=== PATIENT | female | born 1940 | race Caucasian/White ===

== ENCOUNTER 2021-11-24 08:43 | Observation (INO) ==
--- NOTE | 2021-11-20 11:33 | Anesthesiology Consultation ---
Date of Service November 20, 2021 Assessment & Plan (1) Encounter for pre-operative examination: Chart Review Chart Review: Acceptable Risk for Surgery (pending preop Covid testing results ) and Patient NOT seen in Pre Admission Testing - Check BSG AM DOS Per nursing assessment 11/14/2021, eyes any recent travel. No known Covid infection in the past 90 days. Patient is fully vaccinated for Covid. No known Covid positive exposures or Covid related symptoms. Preop Covid testing scheduled 11/20/21= will await results Patient last seen by PCP 11/17/2021 = pt feeling relatively well today. Scheduled for repair/replacement of right knee prosthesis next Wednesday. Kidney dysfunction has continued with slight declinefollowing with nephrologyseen twice yearly. Following with heme for anemia. Following with endocrinology for diabetes Toujeo recently increased. Hypertensionwe will add amlodipine each evening. Plan for repair/replacement of right knee prosthesis next 11/24/2021. Famotidine dose decreased. (Medication updated in med list- patient given instructions to take amlopidine as scheduled) Pt last seen by cardio 09/13/20= Chronic issue stable. Medically managed CAD. 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 Discussed case with Dr. Cassidy re: cardiac history - patient denies any recent chest pain/pressure- mild/chronic BENITEZ with hills (climbs daily to get mail)- preop EKG unremarkable- patient can proceed as scheduled.) History Surgery Operation Date: 11/24/21 07:15 Proposed Procedures p Right Knee Poly Exchange, Patellar Revision - Ricardo Balderas MD Height/Weight Height: 5 ft 1 in Weight: 68.039 kg Allergies Allergy/AdvReac Type Severity Reaction Status Date / Time Penicillins Allergy Unknown Hives Verified 11/14/21 08:40 naproxen AdvReac Unknown Nausea Verified 11/14/21 08:40 oxycodone [From OxyContin] AdvReac Unknown N/V Verified 11/14/21 08:40 Medications Home Medications Medication Instructions Recorded Confirmed Last Taken allopurinol 100 mg tablet 100 mg PO QPM 01/27/21 11/14/21 Unknown alprazolam 0.25 mg tablet 0.25 - 0.5 mg PO BID PRN 01/27/21 11/14/21 Unknown aspirin 81 mg tablet,delayed 81 mg PO QAM 01/27/21 11/14/21 Unknown release cyanocobalamin (vitamin B-12) 5,000 mcg PO QAM 01/27/21 11/14/21 Unknown 5,000 mcg capsule doxazosin 1 mg tablet 1 mg PO HS 01/27/21 11/14/21 Unknown gabapentin 300 mg capsule 300 mg PO BID 01/27/21 11/14/21 Unknown hydrochlorothiazide 12.5 mg capsule 12.5 mg PO QAM 01/27/21 11/14/21 Unknown insulin aspart U-100 100 unit/mL 8 unit SUBCUT TID 01/27/21 11/14/21 Unknown subcutaneous solution (Novolog U-100 Insulin aspart) levothyroxine 100 mcg capsule 100 mcg PO QAM 01/27/21 11/14/21 Unknown liraglutide 0.6 mg/0.1 mL (18 mg/3 0.6 mg SUBCUT QPM 01/27/21 11/14/21 Unknown mL) subcutaneous pen injector ([employer] 2-Kam) losartan 100 mg tablet 100 mg PO HS 01/27/21 11/14/21 Unknown magnesium 250 mg tablet 500 mg PO QAM 01/27/21 11/14/21 Unknown metoprolol succinate 100 mg 100 mg PO PM 01/27/21 11/14/21 Unknown tablet,extended release 24 hr simvastatin 40 mg tablet 40 mg PO HS 01/27/21 11/14/21 Unknown cholecalciferol (vitamin D3) 125 125 mcg PO QAM 11/14/21 11/14/21 Unknown mcg (5,000 unit) tablet (Vitamin D3) cholecalciferol (vitamin D3) 25 25 mcg PO PM 11/14/21 11/14/21 Unknown mcg (1,000 unit) chewable tablet (Vitamin D3) insulin glargine U-300 conc 300 88 unit SUBCUT PM 11/14/21 11/14/21 Unknown unit/mL (3 mL) subcutaneous pen (Toujeo Max U-300 SoloStar) amlodipine 2.5 mg tablet 2.5 mg PO QPM 11/20/21 11/20/21 Unknown famotidine 20 mg tablet 20 mg PO BID 11/20/21 11/20/21 Unknown Past Medical History Medical History (Updated 11/20/21 @ 11:14 by Isidra Baker PA-C) Anemia Chronic, baseline hgb 10-11 range CAD (coronary artery disease) Chronic total occlusion of distal RCA per 2018 cardiac cath Medically managed Chronic kidney disease Follows with Dr. Vasquez Diabetes mellitus, type 2 IDDM GERD (gastroesophageal reflux disease) Controlled Gout History of claustrophobia Hyperlipidemia Hypertension Hypothyroidism Past Family History Family History Mother Family history of diabetes mellitus Past Surgical History Surgical History History of cardiac cath 2019> no stents History of cholecystectomy History of colonoscopy 2019 History of hysterectomy Total History of total knee replacement R/L History of total shoulder replacement R/L Social History Smoking Status: Never smoker Do You Dip or Chew Tobacco: No Hx Alcohol Use: Yes Alcohol type: beer alcohol intake frequency: holidays/special occasions only Hx Substance Use: No substance use type: does not use Lab Results Anesthesia Preop Results Results Anesthesia Widget: WBC 7.43 K/uL (4.8-10.8) 11/14/21 Hgb 11.2 g/dL (12.0-16.0) L 11/14/21 Hct 32.9 % (37-47) L 11/14/21 Plt 230 K/uL (130-400) 11/14/21 Na 135 mmol/L (136-145) L 11/14/21 K 4.3 mmol/L (3.5-5.1) 11/14/21 Cl 98 mmol/L (98-107) 11/14/21 CO2 29 mmol/L (21-32) 11/14/21 BUN 27 mg/dl (6-23) H 11/14/21 Creat 1.63 mg/dl (0.6-1.2) H 11/14/21 Glucose Level 137 mg/dl (70-99(Fasting)) H 11/14/21 PT 10.9 Seconds (9.0-12.0) 11/18/21 PTT 24.5 Seconds (21.0-31.0) 11/14/21 INR 1.0 (0.9-1.1) 11/18/21 HA1c 8.1 % (4.5-5.6) H 11/14/21 Urine Color Yellow 11/14/21 Urine Appearance Clear (Clear) 11/14/21 Urine pH 7.5 (4.5-7.5) 11/14/21 Urine Specific [place] 1.011 (1.000-1.030) 11/14/21 Urine Protein Negative (Negative) 11/14/21 Urine Glucose (UA) Negative (Negative) 11/14/21 Urine Ketones Negative (Negative) 11/14/21 Urine Blood Negative (Negative) 11/14/21 Urine Nitrite Negative (Negative) 11/14/21 Urine Bilirubin Negative (Negative) 11/14/21 Urine Urobilinogen Negative (Negative) 11/14/21 Urine Leukocyte Esterase 2+ (Negative) H 11/14/21 Urine WBC (Auto) 5-10 /hpf (0-5) H 11/14/21 Urine RBC (Auto) 0-4 /hpf (0-4) 11/14/21 Urine Hyaline Casts (Auto) 1-5 /lpf (0-5) 11/14/21 Urine Epithelial Cells (Auto) >30 /lpf (0-5) H 11/14/21 Urine Bacteria (Auto) 1+ (Negative) H 11/14/21 Lab Comments: *Anemia chronic and stable Elevated creat- chronic and stable- mildly improved from previous Mildly elevated Hgb A1C- endo increased insulin per PCP note from 11/17/21 Testing Laboratory Results 11/14/21= URINE CULTURE: 3 types of organisms present, all high counts probable skin princess Electrocardiogram Date: 11/14/21 Sinus rhythm with first-degree AV block at 74 bpm. Otherwise normal EKG per cardio. Chest X-Ray Date: 02/06/21 FINDINGS: Bilateral shoulder arthroplasties are incidentally noted. Cardiomediastinal silhouette is stable. There is no pneumothorax or pleural effusion. There is no evidence for pulmonary edema. Mild bibasilar opacities favor atelectasis. IMPRESSION: No acute cardiopulmonary findings. Echocardiogram Date: 06/07/18 EF: 55% Normal LV wall motion and ejection fraction. Enlargement of the left atrium. Sclerotic changes involving both the aortic and mitral valve leaflets, as well as mitral annular calcification. Mild mitral and tricuspid valvular insufficiency. Stress Test Date: 06/14/18 Abnormal myocardial perfusion SPECT images with evidence for pharmacologically induced inferolateral ischemia. Normal LV wall motion and thickening. Normal LVEF post stress of 68%. Subsequent cardiac cath 07/2018* Cardiac Catheterization Date: 07/08/18 LM = angiographically normal LAD = mid 20% stenosis. Collaterals are visualized to distal RCA. Circumflex = mild atherosclerosis RCA = distant 100% chronic total occlusion, with faint CAS I flow into the PLV branch. RPDA is only visualized via collaterals from LAD artery. Impression and plan: Chronic total occlusion of distal RCA. Normal LV systolic function. Recommendations: Medical therapy.
--- NOTE | 2021-11-23 09:29 | History & Physical Report ---
Date of Service November 23, 2021 Assessment & Plan (1) Instability of knee joint: Plan: Treatment options discussed with the patient. She has exam findings consistent with a fracture polyethylene post. She is having persistent instability and dysfunction of her knee. Is unable to normal daily activities due to her pain. She would like to proceed with surgical intervention. Risks, benefits and alternatives to surgery including but not limited to infection, DVT, pain, stiffness, need for revision surgery, damage to blood vessels, damage to nerves, PE, , were discussed with the patient and they wish to proceed. We will plan on polyethylene exchange right total knee arthroplasty, patella revision. Surgery scheduled for November 24, [address] Balderas at [facility]. We will plan on aspirin 81 mg p.o. daily for 1 month postop for DVT prophylaxis. We will plan on home health PT postop. All questions answered. She will follow up post op. Laterality: right Qualified Code(s): M25.361 - Other instability, right knee History of Present Illness Chief Complaint: Right knee pain Primary Care Provider: Daniel Kohli 81-year-old female with past medical history significant for NARAYAN, diabetes mellitus type 2, hypothyroidism, hypertension, CAD, CKD who presents with ongoing right knee pain and instability. Pain is interfering with daily activities. Her exam and history are consistent with a fracture polyethylene post. She would like to proceed with surgical intervention. Patient denies headaches, sweats, fevers, chills, double vision, blurred vision, cough, sore throat, dysphagia, chest pain, sob, wheezing, n/v/d/c, numbness, tingling, fatigue, urinary symptoms, mood disorders. ROS positive for right knee pain and instability. Allergies Allergy/AdvReac Type Severity Reaction Status Date / Time Penicillins Allergy Unknown Hives Verified 11/14/21 08:40 naproxen AdvReac Unknown Nausea Verified 11/14/21 08:40 oxycodone [From OxyContin] AdvReac Unknown N/V Verified 11/14/21 08:40 Home Medications Medication Instructions Recorded Confirmed Type allopurinol 100 mg tablet 100 mg PO QPM 01/27/21 11/14/21 History alprazolam 0.25 mg tablet 0.25 - 0.5 mg PO BID PRN 01/27/21 11/14/21 History aspirin 81 mg tablet,delayed 81 mg PO QAM 01/27/21 11/14/21 History release cyanocobalamin (vitamin B-12) 5,000 mcg PO QAM 01/27/21 11/14/21 History 5,000 mcg capsule doxazosin 1 mg tablet 1 mg PO HS 01/27/21 11/14/21 History gabapentin 300 mg capsule 300 mg PO BID 01/27/21 11/14/21 History hydrochlorothiazide 12.5 mg capsule 12.5 mg PO QAM 01/27/21 11/14/21 History insulin aspart U-100 100 unit/mL 8 unit SUBCUT TID 01/27/21 11/14/21 History subcutaneous solution (Novolog U-100 Insulin aspart) levothyroxine 100 mcg capsule 100 mcg PO QAM 01/27/21 11/14/21 History liraglutide 0.6 mg/0.1 mL (18 mg/3 0.6 mg SUBCUT QPM 01/27/21 11/14/21 History mL) subcutaneous pen injector ([employer] 2-Kam) losartan 100 mg tablet 100 mg PO HS 01/27/21 11/14/21 History magnesium 250 mg tablet 500 mg PO QAM 01/27/21 11/14/21 History metoprolol succinate 100 mg 100 mg PO PM 01/27/21 11/14/21 History tablet,extended release 24 hr simvastatin 40 mg tablet 40 mg PO HS 01/27/21 11/14/21 History cholecalciferol (vitamin D3) 125 125 mcg PO QAM 11/14/21 11/14/21 History mcg (5,000 unit) tablet (Vitamin D3) cholecalciferol (vitamin D3) 25 25 mcg PO PM 11/14/21 11/14/21 History mcg (1,000 unit) chewable tablet (Vitamin D3) insulin glargine U-300 conc 300 88 unit SUBCUT PM 11/14/21 11/14/21 History unit/mL (3 mL) subcutaneous pen (Toujeo Max U-300 SoloStar) amlodipine 2.5 mg tablet 2.5 mg PO QPM 11/20/21 11/20/21 History famotidine 20 mg tablet 20 mg PO BID 11/20/21 11/20/21 History Past Med/Surg History Medical History (Updated 11/23/21 @ 09:34 by Son Connors PA-C) Anemia Chronic, baseline hgb 10-11 range CAD (coronary artery disease) Chronic total occlusion of distal RCA per 2018 cardiac cath Medically managed Chronic kidney disease Follows with Dr. Vasquez Diabetes mellitus, type 2 IDDM GERD (gastroesophageal reflux disease) Controlled Gout History of claustrophobia Hyperlipidemia Hypertension Hypothyroidism Surgical History History of cardiac cath 2019> no stents History of cholecystectomy History of colonoscopy 2019 History of hysterectomy Total History of total knee replacement R/L History of total shoulder replacement R/L Family History Mother Family history of diabetes mellitus Social History Smoking Status: Never smoker Second Hand Exposure: No; Hx Alcohol Use: Yes Alcohol type: beer Hx Substance Use: No Preferred Language: Croatian Communication Ability: Effective Pediatric Immunologist Required: No Beliefs That Will Affect Care: None Current Living Situation: Spouse Feels Safe at Home: Yes Assistive Devices: Denture - Upper, Denture - Lower and Glasses Review of Systems All systems reviewed & are unremarkable except as noted in HPI & below Physical Exam Constitutional: well developed and well nourished; no acute distress Eyes: PERRL, conjunctivae normal, anicteric sclerae ENMT: external ear and nose normal, oropharynx normal Neck: trachea midline, no thyromegaly Respiratory: normal respiratory effort, lungs clear to auscultation Cardiovascular: RRR, no murmur, no edema Musculoskeletal: Right knee: There is no erythema. Mild to moderate effusion. She has well-healed surgical incision. Range of motion is 0 to 120 degrees. Positive valgus varus stress test, positive posterior drawer. She has subluxation consistent with a fractured post on posterior drawer. Skin: no rashes, warm and dry Neurologic: patellar DTR's 2+ bilat, sensation intact Psychiatric: A+Ox3, euthymic affect Results & Data ([facility]) Diagnostic Findings Right knee: There is a right total knee arthroplasty and stable alignment. L ucency patella component concerning for possible patellar loosening.
[~2021-11-24 08:43] MED LIST: ACETAMINOPHEN 500 MG TAB PO SCH; BUPIVACAINE 0.25% 30 ML VIAL ONE; BUPIVACAINE 0.5 % 5 MG/1 ML PF 10ML VIAL ONE; CeleBREX 200 MG CAP PO SCH; FAMOTIDINE 20 MG TAB PO SCH; GABAPENTIN 300 MG CAP PO SCH; METOCLOPRAMIDE HCL 10 MG TABLET PO SCH; ROPIVACAINE 0.5% HCL/PF 150 MG, BUPIVACAINE 0.75% MPF 20 ML, EPINEPHrine 30MG/30ML (OR ... INFIL SCH; SODIUM CHLORIDE 0.9% 1000ML IV SCH; TRANEXAMIC ACID 1,000 MG **IV Intra-op IV SCH; TRANEXAMIC ACID 1,000 MG **IV Pre-op IV SCH
[2021-11-24] MEDS: VANCOMYCIN HCL 1,000 MG/270 ML BAG IV SCH ×2 (09:20→11:04)
--- NOTE | 2021-11-24 10:15 | History & Physical Bridge Note ---
Date of Service November 24, 2021 History & Physical Bridge Note I have examined the patient, reviewed the History & Physical and in the interval since the performance of the History & Physical I have noted the following changes of clinical significance: Patient has an abrasion 3-1/2 cm x 3 cm oval superficial left knee with no knee effusion and some mild erythema consistent with irritation of the skin but no clinical cellulitis.
[2021-11-24] MEDS ORDERED: MIDAZOLAM HCL 1 MG/ML 2ML VIAL ONE (10:56)
[2021-11-24] MEDS ORDERED: ONDANSETRON INJ 2 MG/ML 2 ML VIAL IV PRN ×2 (11:39→16:41)
[2021-11-24] MEDS ORDERED: ePHEDrine sulfate 50 MG/ML AMP IV PRN (11:39)
[2021-11-24] MEDS ORDERED: fentaNYL citrate 100 MCG/2 ML VIAL IV PRN (11:39)
[2021-11-24] MEDS ORDERED: ATROPINE SULFATE 0.1 MG/ML 10ML SYR IV PRN (11:39)
[2021-11-24] MEDS ORDERED: ORTHO JOINT ANESTHETIC ONE (13:02)
[2021-11-24] MEDS ORDERED: ONDANSETRON INJ 2 MG/ML 2 ML VIAL ONE (13:38)
[2021-11-24] MEDS ORDERED: PROPOFOL IV EMULSION 10 MG/ML 20 ML VIAL IV ONE (13:38)
[2021-11-24] MEDS ORDERED: LIDOCAINE 2% 2 ML VIAL/AMP(20MG/ML) INFIL ONE (13:38)
--- NOTE | 2021-11-24 15:43 | Post Operative Brief Note ---
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 I identified the patient and participated in the time-out.: Yes Procedure Operation Date: 11/24/21 11:15 Actual Procedures p Right Knee Tibial Poly Exchange, Patellar Revision, with synovectomy(Right) and superficial wound VAC application- Ricardo Balderas MD Surgeon Ricardo Balderas MD Chain Mender Khari HUSSEIN Estimated Blood Loss 5 Findings Consistent with Post-Op Diagnosis Specimens Explanted polyethylene tibial component Swab culture knee joint fluid Drains Hemovac Drain (right knee) Anesthesia Type MAC Spinal Regional Complications none Disposition Disposition: Recovery Room Overlapping Procedure I was immediately available: during the entire case.
--- NOTE | 2021-11-24 16:16 | XRay Report ---
RIGHT KNEE 2 VIEWS History: Right total knee arthroplasty. Degenerative arthritis. Postop. FINDINGS: The patient is status post a right total knee arthroplasty. The hardware is intact. No frac ture or dislocation. Skin schuyler and surgical drains are in place. IMPRESSION: Right total knee arthroplasty. No evidence for hardware complication. ACT 112: Negative or not required by law. Electronically signed by: Maury Marsh M.D. 11/24/2021 4:14 PM
--- NOTE | 2021-11-24 16:35 | Anesthesiology Progress Note ---
Date of Service November 24, 2021 Anesthesia Post Procedure Vital Signs Vital Signs: Temp Pulse Pulse Resp BP BP Pulse Ox 11/24/21 16:25 68 16 115/58 L 94 11/24/21 16:15 36.6 C 70 20 102/66 93 11/24/21 16:05 75 18 102/51 L 93 11/24/21 15:55 73 14 106/54 L 93 11/24/21 15:46 36.7 C 80 12 82/63 L 95 11/24/21 09:52 36.4 C L 75 20 102/86 96 Transfer of Care Handoff Completed per policy Notes Mental Status: alert / awake / arousable Patient Amnestic to Procedure: Yes Nausea / Vomiting: adequately controlled Pain: adequately controlled Airway Patency, RR, SpO2: stable & adequate BP & HR: stable & adequate Hydration State: stable & adequate Anesthetic Complications: no major complications apparent
[2021-11-24] MEDS ORDERED: MAGNESIUM HYDROXIDE SUSP 30 ML UDC PO PRN (16:41)
[2021-11-24] MEDS ORDERED: VANCOMYCIN CONSULT ACTIVE PRN (16:41)
[2021-11-24] MEDS ORDERED: ALPRAZolam 0.25 MG TABLET PO PRN (16:41)
[2021-11-24] MEDS ORDERED: HYDROCODONE/ACETAMOPHEN 5/325MG TAB PO PRN (16:41)
[2021-11-24] MEDS ORDERED: METOCLOPRAMIDE HCL INJ 5 MG/ML 2 ML VIAL IV PRN (16:41)
[2021-11-24] MEDS ORDERED: PHARMACY GLYCEMIC MGMT CONSULT PRN (16:41)
[2021-11-24] MEDS ORDERED: bisacodyL 10 MG SUPP PR PRN (16:41)
[2021-11-24] MEDS ORDERED: NALOXONE HCL 0.4 MG/1 ML VIAL/CARP IV PRN (16:41)
[2021-11-24] MEDS: SODIUM CHLORIDE 0.9% 1000ML 1,000 ML IV SCH (17:20)
--- NOTE | 2021-11-24 18:13 | Operative Report (OR) ---
DATE OF SURGERY: 11/24/2021. 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 PROCEDURE: Right knee polyethylene exchange of tibial component and revision patellar component with curettage of cyst patella and electrocautery synovectomy, right knee and superficial wound VAC appli cation. SURGEON: Ricardo Balderas MD. COMPUTER SYSTEMS SUPPORT SPECIALIST: KEENAN Serrano. ESTIMATED BLOOD LOSS: 5 mL FINDINGS: Consistent with postoperative diagnosis. SPECIMENS: Explanted tibial polyethylene component and fractured tibial polyethylene and swab cultur e knee joint fluid. DRAINS: Hemovac x2. ANESTHESIA: MAC spinal regional block. COMPLICATIONS: None. DISPOSITION: Recovery room. OVERLAPPING PROCEDURE: None. INDICATIONS FOR PROCEDURE: Patient is an 81-year-old female who had a right total knee arthroplasty index procedure in 2009. She had a [employer] Journey I type total knee replacement. She did well over the years until this last year when she developed instability of her knee. Radiographs dem onstrate a well-fixed cemented implants that are satisfactory aligned. On the skyline patellar view, there appears to be some cystic changes below the patellar component concerning for osteolysis. Bon e scan demonstrated this did have some increased signal activity consistent with osteolysis around th e patellar component. Clinically, she has posterior instability of the knee and some varus or valgus instability consistent with a fractured polyethylene post. DESCRIPTION OF PROCEDURE: The patient was taken to the operating room, anesthetized under MAC spinal and regional block anesthetic right lower extremity. Pneumatic tourniquet was placed on right upper thigh. Knee exam demonstrates she had good range of motion and some varus or valgus instability and with posterior drawer, there was subluxation of the component consistent with a fractured polyethyle ne post. There was a moderately large effusion. The right lower extremity was prepped and draped wi ChloraPrep. Leg was elevated, exsanguinated with an Esmarch bandage, and pneumatic tourniquet was raised to 300 mmHg. Anterior incision was made through her old longitudinal scar. Skin was incised sharply. Subcutaneous flaps were elevated. Extensor mechanism was all intact. An incision was made through the medial retinaculum extended up in the mid third of quadriceps tendon and extended down to medial tibial tubercle. When the joint was opened up, there was moderately lar ge effusion, clear benign appearing fluid. We did culture this as a precaution. Inspecting the knee , there was synovitis in the knee. The polyethylene post was chronically fractured. The fragment was in the notch area and the top of the post that had fractured off was rounded off and smoothed out fr om chronic subluxation. There was some superficial polyethylene wear on the joint surface of the dickson yethylene, no backside wear noted. The patella itself was well fixed, not loose, but there was obvio us osteolysis. The synovium was chronically inflamed. Attention was first paid to performing electrocautery synovectomy removing the synovium in the gutter s, suprapatellar pouch, and around the patellar component. Then, the tibial polyethylene was removed using a curved osteotome and sharp Hohmann to lever it out; however, the tibial component and a smal l fragment that had broken off and the notch was removed. Some further synovectomy performed in the notch area posteriorly around the condyles. Patellar components were solid and intact without any lo osening there. There was no significant osteolysis surrounding those components. The patella was ev erted. Subperiosteal peel lateral release was performed around the patella. Patella bone was not lo ose, although it looked like there was some internal changes in the polyethylene, possibly some backs joaquin issues with a polyethylene patella. Due to a positive bone scan and radiographic osteolysis deci clay was made to revise the patella. The patella was removed with oscillating saw, taking minimal tan ne off the patella. The plastic lugs were removed with a drill and a curette. Then, a 32 mm patella r guide from the [employer] system was placed over the holes and the drill holes were d rilled out removing the cement and gaining appropriate depth for revision patellar component. After this was done, it was noted that there was some osteolysis on the patella toward the medial peg. The re was a fairly large cyst that extended centrally was contained within the patella. This was curett ed out. Some superficial small cyst from osteolysis were curetted out. There was a large good amoun t of patellar bone to perform a primary revision of the polyethylene component. Trial was placed and was stable and fully seated. Attention was taken to trialing the tibial polyethylene. We placed a 9 tibial polyethylene for a 4 t ibial component, which was similar to that originally implanted and this restored stability through f ull range of motion and ligamentous balance was satisfactory and the patella tracked centrally. The trials were removed. The knee was copiously irrigated with saline solution. Then, the Journey I siz e 4 x 9 mm posterior stabilized polyethylene component was inserted into the tibia with the insertion device. Then the knee was placed in full extension, and the 32 symmetrical patella was cemented int o position with Simplex cement filling the cyst areas with cement. Clamp was placed and held until h ardened. Betadine soak was used for 3 minutes. Knee was copiously irrigated again. The 2 drains we re brought out laterally. I connected to Hemovac. The quadriceps tendon and medial retinaculum were closed in [id number] #1 Vicryl sutures. Knee was taken through full range of motion, repair wa s secured. Subcutaneous tissue closed with interrupted 2-0 Vicryl sutures and skin was closed with s taples and then a superficial wound VAC was applied, MARILY and Acticoat. The tourniquet was let down. The patient had normal capillary refill of the extremity. The patient tolerated the procedure well . KEENAN Serrano was my supply chain assistant. He functioned as supply chain assistant through the entire proce dure. He assisted in all activities of the procedure through the entire procedure starting with prep ping, draping, soft tissue retraction, instrument management and revision of the components and michael zena in closure and applied a superficial wound VAC. He will participate in postoperative care of the patient as well. Job ID: [id number]
[2021-11-24] MEDS ORDERED: DEXTROSE 50% 50 ML SYRINGE IV PRN (19:00)
[2021-11-24] MEDS ORDERED: GLUCOSE 10 TABS/TUBE PO PRN (19:00)
[2021-11-24] MEDS ORDERED: CARBOHYDRATES FOR HYPOGLYCEMIA PO PRN (19:00)
[2021-11-24] MEDS ORDERED: GLUCAGON FOR INJ 1 MG VIAL IM PRN (19:00)
[2021-11-24] MEDS ORDERED: GLUCOSE 40% GEL 15 GM TUBE PO PRN (19:00)
--- NOTE | 2021-11-24 20:13 | Hospitalist Consultation ---
Date of Consultation November 24, 2021 Assessment & Plan (1) Instability of knee joint: POD #0 from Right Knee Tibial Poly Exchange, Patellar Revision, with synovectomy(Right) and superficial wound VAC application - Pain control per primary Orthopaedics service- Appropriate with rescue Narcan Available - ABX- Per primary Orthopaedics service - VTE- SCDs, chemoproph- per primary Orthopaedics service- planning on ASA per notes - IVF- per primary Orthopaedics service - Wound care- per primary Orthopaedics service - Transfusion needs per primary Orthopaedics service - PT/OT- per primary Orthopaedics service - Drains/Vacs- per primary Orthopaedics service - Restart ASA when hemostasis is ensured per primary Orthopaedics service (2) Hypertension: Currently hypotensive but with MAPS >65- variable BPs reported at home- Amlodopine was recently added as outpatient - trend overnight and morning - Current medications on hold: Amlodipine 2.5, HCTZ, Losartan - Continue Metoprolol- with hold parameters (3) Hyperlipidemia: Continue with Zocor 40mg QHS (4) Hypothyroidism: Continue synthroid 100mcg (5) Gout: Continue prophylaxis with Allopurinol (6) Diabetes mellitus, type 2: GLycemic pharmacy consult placed by primary Orthopaedics consult - follow- goal <180 (7) Chronic kidney disease: CKD III- CRCL 29 - 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 - Follow in morning with hydration and blood pressure - Glucose control as above (8) CAD (coronary artery disease): Cardiac cath performed - chronic occlusion of distal RCA- nomral LVEF - Continue Metoprolol as above- may need dose reduction in hospital setting post operatively - ASA restart when hemostasis is ensured - Has Ranexa on medical clearance medication reconciliation- not currently on Meds- start in AM if normotensive - patient (9) GERD (gastroesophageal reflux disease): GERD- famotidine- recent addition- continue Supervising Physician Co-Signing Physician Notes Patient seen at bedside with PADMINI Holguin and I agree with the assessment and plan as above. In brief, patient is a very pleasant 81yo female s/p right TKA 10 years ago with recent instability s/p right knee tibial poly exchange, patellar revision with synovectomy performed by Dr. Balderas today. Surgery performed under spinal regional/ MAC, well tolerated. No complications identified. EBL minimal at 5mL. Eating well. No complaints at present Exam as above. Patient appears well. Labs and images reviewed. Assessment/Plan - holding anti-hypertensive agents for now. Monitor BP Continue Metoprolol Pain control, anti-emetics, bowel regimen, PT/OT per primary team Remainder as above History of Present Illness Reason for Consultation: medical managment Requesting Physician: Joss Balderas Attending Physician: Ricardo Balderas MD History of Present Illness 81 YOF with past medical history of: DM, HTN, HLD, CKD, GERD, Gout, Hypothyroidism, CAD. Patient is POD # 0 from Right Knee Tibial Poly Exchange, Patellar Revision, with synovectomy(Right) and superficial wound VAC application by Dr. Balderas under spinal regional block. 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 Blood loss reported 5ml. Patient was evaluated in her [facility] room. Patient was briskly awake, post dinner without any nausea/vomiting, and currently with pain controlled. Her Hemovac drain is in place with minimal serous sang drainage. She is noted to be 95/61 with her blood pressure and she also endorses at home when checking her blood pressure she has noted it to be low in the 60s/40s. Overall she is doing well at this time with no acute concerns. Recommendations: - Hold: Amlodipine, HCTZ, Losartan- follow renal indices and intravascular volume status- restart some likely in am - Glycemic control- as you are with pharmacy glycemic consult - Continue Metoprolol - Add Renexa in AM if BP supports- medical clearance Ranexa 500mg PO twice daily - ASA when hemostasis ensured- restart Allergies Allergy/AdvReac Type Severity Reaction Status Date / Time Penicillins Allergy Unknown Hives Verified 11/24/21 09:46 naproxen AdvReac Unknown Nausea Verified 11/24/21 09:46 oxycodone [From OxyContin] AdvReac Unknown N/V Verified 11/24/21 09:46 Home Medications Medication Instructions Recorded Confirmed Type allopurinol 100 mg tablet 100 mg PO QPM 01/27/21 11/24/21 History alprazolam 0.25 mg tablet 0.25 - 0.5 mg PO BID PRN 01/27/21 11/24/21 History aspirin 81 mg tablet,delayed 81 mg PO QAM 01/27/21 11/24/21 History release cyanocobalamin (vitamin B-12) 5,000 mcg PO QAM 01/27/21 11/24/21 History 5,000 mcg capsule doxazosin 1 mg tablet 1 mg PO HS 01/27/21 11/24/21 History gabapentin 300 mg capsule 300 mg PO BID 01/27/21 11/24/21 History hydrochlorothiazide 12.5 mg capsule 12.5 mg PO QAM 01/27/21 11/24/21 History insulin aspart U-100 100 unit/mL 8 unit SUBCUT TID 01/27/21 11/24/21 History subcutaneous solution (Novolog U-100 Insulin aspart) levothyroxine 100 mcg capsule 100 mcg PO QAM 01/27/21 11/24/21 History liraglutide 0.6 mg/0.1 mL (18 mg/3 0.6 mg SUBCUT QPM 01/27/21 11/24/21 History mL) subcutaneous pen injector (Victoza 2-Kam) losartan 100 mg tablet 100 mg PO HS 01/27/21 11/24/21 History magnesium 250 mg tablet 500 mg PO QAM 01/27/21 11/24/21 History metoprolol succinate 100 mg 100 mg PO PM 01/27/21 11/24/21 History tablet,extended release 24 hr simvastatin 40 mg tablet 40 mg PO HS 01/27/21 11/24/21 History cholecalciferol (vitamin D3) 125 125 mcg PO QAM 11/14/21 11/24/21 History mcg (5,000 unit) tablet (Vitamin D3) cholecalciferol (vitamin D3) 25 25 mcg PO PM 11/14/21 11/24/21 History mcg (1,000 unit) chewable tablet (Vitamin D3) insulin glargine U-300 conc 300 88 unit SUBCUT PM 11/14/21 11/24/21 History unit/mL (3 mL) subcutaneous pen (Toujeo Max U-300 SoloStar) amlodipine 2.5 mg tablet 2.5 mg PO QPM 11/20/21 11/24/21 History famotidine 20 mg tablet 20 mg PO BID 11/20/21 11/24/21 History Patient History Medical History (Updated 11/24/21 @ 20:12 by PADMINI Wright) Anemia Chronic, baseline hgb 10-11 range CAD (coronary artery disease) Chronic total occlusion of distal RCA per 2018 cardiac cath Medically managed Chronic kidney disease Follows with Dr. Vasquez Diabetes mellitus, type 2 IDDM GERD (gastroesophageal reflux disease) Controlled Gout History of claustrophobia Hyperlipidemia Hypertension Hypothyroidism Surgical History History of cardiac cath 2019> no stents History of cholecystectomy History of colonoscopy 2020 History of hysterectomy Total History of total knee replacement R/L History of total shoulder replacement R/L Family History Mother Family history of diabetes mellitus Social History Smoking Status: Never smoker Second Hand Exposure: No; Do You Dip or Chew Tobacco: No; Tobacco Cessation Education Requested by Patient: No Hx Alcohol Use: Yes Alcohol type: beer Hx Substance Use: No Preferred Language: Slovak Communication Ability: Effective Director Audience Marketing Required: No Beliefs That Will Affect Care: None Current Living Situation: Spouse Other Information That Helps Us Care for You: No Feels Safe at Home: Yes Safety Concerns: Feels Safe At This Time Assistive Devices: Denture - Upper, Denture - Lower, Glasses and Walker Review of Systems Review of Systems: REVIEW OF SYSTEMS: Constitutional: No fever, sweats or chills Eyes: No diplopia, no worsening or blurred vision ENT: normal hearing, no trouble swallowing Respiratory: No cough, sputum, dyspnea at rest or on exertion Cardiovascular: No chest pain, tightness or palpitations Abdomen: No pain, nausea, vomiting, diarrhea or constipation Musculoskeletal: (+) joint pain controlled, NO calf pain, swelling Neurologic: No weakness, numbness/tingling, or balance problems Psychiatric: No anxiety or depression Skin: No rash or itch Physical Exam Physical Exam: PHYSICAL EXAM: General: awake, alert, no apparent distress Head: Normocephalic, atraumatic ENT: PERRL, EOMI, no pharyngeal exudate, mucous membranes moist Neuro: AAO x 3, speech clear and appropriate, strength intact bilaterally 5/5, sensation intact and equal all extremities and dermatomes, no pronator drift Chest: equal rise and fall of the chest, no accessory muscle use, no heaves or thrills, clear to auscultation, on 2LNC Cardiac: Regular rate and rhythm, telemetry reviewed, skin warm dry, cap refill <3 seconds, peripheral pulses +2 no JVD, grade I systolic murmur, no JVD, no edema GI: NABS x 4 quadrants, soft, nontender to palpation, no rebound, guarding or tenderness : Spontaneously voiding, no pain, no CVA tenderness, Extremities: Normal inspection, no peripheral edema or erythema, calfs nontender to palpation Psych: Normal mood and affect Skin: no rash or erythema Results & Data Results & Data ([facility]) Vital Signs (Past 12 Hours) Vital Signs Temp Pulse Pulse Resp BP BP Pulse Ox 11/24/21 19:40 53 L 18 95/61 L 92 11/24/21 18:30 65 16 108/65 95 11/24/21 17:37 75 16 128/71 95 11/24/21 17:06 36.3 C L 70 16 108/65 94 11/24/21 16:35 36.3 C L 68 16 109/60 97 11/24/21 16:25 68 16 115/58 L 94 11/24/21 16:15 36.6 C 70 20 102/66 93 11/24/21 16:05 75 18 102/51 L 93 11/24/21 15:55 73 14 106/54 L 93 11/24/21 15:46 36.7 C 80 12 82/63 L 95 11/24/21 09:52 36.4 C L 75 20 102/86 96 Laboratory Results Abnormal lab results 11/24/21 11/24/21 11/24/21 Range/Units 09:11 17:10 18:42 POC Glucose 119 H 64 L* 133 H (70-99) mg/dl Diagnostic Findings Knee X-Ray 11/24/21 15:48 RIGHT KNEE 2 VIEWS History: Right total knee arthroplasty. Degenerative arthritis. Postop. FINDINGS: The patient is status post a right total knee arthroplasty. The hardware is intact. No fracture or dislocation. Skin schuyler and surgical drains are in place. IMPRESSION: Right total knee arthroplasty. No evidence for hardware complication. ACT 112: Negative or not required by law. Electronically signed by: Maury Marsh M.D. 11/24/2021 4:14 PM PG Care Time/CCT Total # of Minutes Spent Total Time Spent with Patient: Total time spent is greater than 50% in coordination of care (as documented) at patient's floor/unit and/or counseling patient: Coding Level of Care Code 62915 Office/OBS Consult Lvl 3 Diagnoses Instability of knee joint M25.361 Laterality: right Hypertension I10 Hyperlipidemia E78.5 Hypothyroidism E03.9 Gout M10.9 Diabetes mellitus, type 2 E11.9 Chronic kidney disease N18.9 CAD (coronary artery disease) I25.10 GERD (gastroesophageal reflux disease) K21.9 (1) Instability of knee joint Laterality: right Qualified Code(s): M25.361 - Other instability, right knee
[2021-11-24] MEDS: ASPIRIN 81 MG ECTAB PO SCH (20:42)
[2021-11-24] MEDS: DOCUSATE SODIUM 100 MG CAP PO SCH (20:42)
[2021-11-24] MEDS: FAMOTIDINE 20 MG TAB PO SCH (20:43)
[2021-11-24] MEDS: GABAPENTIN 300 MG CAP PO SCH (20:44)
[2021-11-24] MEDS: METOPROLOL SUCC 50MG EXT REL TAB PO SCH ×2 (20:44→20:48)
[2021-11-24] MEDS ORDERED: LOSARTAN POTASSIUM 50 MG TAB PO SCH (21:00)
[2021-11-24] MEDS ORDERED: allopurinoL 100 MG TAB PO SCH (21:00)
[2021-11-24] MEDS ORDERED: amLODIPine BESYLATE 5 MG TAB PO SCH (21:00)
[2021-11-24] MEDS ORDERED: CHOLECALCIFEROL 1,000 UNITS 25 MCG TAB PO SCH (21:00)
[2021-11-24] MEDS ORDERED: SENNA 8.6 MG TAB PO SCH (21:00)
[2021-11-24] MEDS ORDERED: INSULIN GLARGINE SOLOSTAR 100 UNITS/ML 3 ML PEN SC ONE (21:00)
[2021-11-24] MEDS ORDERED: DOXAZOSIN MESYLATE 1 MG TAB PO SCH (21:00)
[2021-11-24] MEDS ORDERED: SIMVASTATIN 40 MG TAB PO SCH (21:00)
[2021-11-24] MEDS: INSULIN ASPART PER UNIT SC SCH (21:33)
[2021-11-25] MEDS: INSULIN ASPART PER UNIT SC SCH ×4 (00:35→13:09)
[2021-11-25] MEDS ORDERED: VANCOMYCIN HCL 1,000 MG in SODIUM CHLORIDE 0.9% 250 ML IV SCH (02:00)
[2021-11-25] MEDS: SODIUM CHLORIDE 0.9% 1000ML 1,000 ML IV SCH (04:02)
[2021-11-25] MEDS ORDERED: LEVOTHYROXINE SODIUM 100 MCG TABLET PO SCH (06:30)
[2021-11-25 06:44] LABS: Hematocrit (blood only) 26.7 % (37-47); Hemoglobin 8.7 g/dL (12.0-16.0); Mean Corpuscular Hemoglobin 30.1 pg (25-34); Mean Corpuscular Hgb Conc 32.6 g/dL (32-36); Mean Corpuscular Volume 92.4 fL (80-100); Mean Platelet Volume 10.1 fL (7.4-10.4); Platelet Count 186 K/uL (130-400); RDW Standard Deviation 47.6 fL (36.4-46.3); Red Blood Count 2.89 M/uL (4.2-5.4); White Blood Count 5.89 K/uL (4.8-10.8)
[2021-11-25 07:07] LABS: BUN Creatinine Ratio 18.4 (10-20); Calcium 7.9 mg/dl (8.5-10.1); Creatinine Clr Calc Pharmacy 24.3 ml/min; Est GFR (African American) 33.7 ml/min; Potassium 4.5 mmol/L (3.5-5.1)
[2021-11-25] MEDS ORDERED: MAGNESIUM OXIDE 400 MG TAB PO SCH (09:00)
[2021-11-25] MEDS ORDERED: CYANOCOBALAMIN (B-12) 2,500 MCG TABLET SL SCH (09:00)
[2021-11-25] MEDS ORDERED: CHOLECALCIFEROL 5,000 UNITS 125 MCG TAB PO SCH (09:00)
[2021-11-25] MEDS ORDERED: hydroCHLOROthiazide 25 MG TAB PO SCH (09:00)
[2021-11-25] MEDS ORDERED: MULTIVITAMIN TAB PO SCH (09:00)
[2021-11-25] MEDS: ASPIRIN 81 MG ECTAB PO SCH (09:18)
[2021-11-25] MEDS: FAMOTIDINE 20 MG TAB PO SCH (09:18)
[2021-11-25] MEDS: DOCUSATE SODIUM 100 MG CAP PO SCH (09:18)
--- NOTE | 2021-11-25 09:24 | Orthopedic Progress Note ---
Date of Service November 25, 2021 Assessment & Plan (1) Instability of knee joint: Plan: POD 1 s/p Polyethylene bearing change/Patellar revision PT/OT protocols. WBAT. DVT prophylaxis - ASA po bid, SCD's, YIFAN's Pain management as written Hgb 8.7; down from 11.2; Hypotensive but asymptomatic. Will discuss with Med service. Plan for recheck today for possbile dc to home. DC planning - Planning for services Admission and Anticipated Discharge Date Admission Date: November 24, 2021 Subjective POD 1 Pt sitting in chair at bedside. Just finished OT session. OT states patient did very well. Pt states she has noted her BP has been low. Not just here but at home. Here PCP has placed her on several medications which she feels has contributed to her feeling tired. Denies LH, dizziness when ambulating. Denies CP, SOB. Pain controlled currently. No other concerns at this time. Physical Exam Physical Exam: Dressings C/D/I. Calves soft, NT. NV intact. Toes mobile. Good DF/PF. HV drainage 75ml from previous shift. Results & Data ([facility]) Vital Signs (Past 12 Hours) Vital Signs Temp Pulse Pulse Resp BP Pulse Ox 11/25/21 07:19 36.5 C 65 16 95/51 L 90 11/25/21 02:30 36.6 C 57 L 18 102/58 L 94 11/24/21 22:48 36.6 C 68 16 114/75 95 Laboratory Results Laboratory Results WBC 5.89 K/uL (4.8-10.8) 11/25/21 06:24 RBC 2.89 M/uL (4.2-5.4) L 11/25/21 06:24 Hgb 8.7 g/dL (12.0-16.0) L 11/25/21 06:24 Hct 26.7 % (37-47) L 11/25/21 06:24 MCV 92.4 fL (80-100) 11/25/21 06:24 MCH 30.1 pg (25-34) 11/25/21 06:24 MCHC 32.6 g/dL (32-36) 11/25/21 06:24 RDW Std Deviation 47.6 fL (36.4-46.3) H 11/25/21 06:24 RDW Coeff of Titus 14.0 % (11.5-14.5) 11/25/21 06:24 Plt Count 186 K/uL (130-400) 11/25/21 06:24 MPV 10.1 fL (7.4-10.4) 11/25/21 06:24 Sodium 136 mmol/L (136-145) 11/25/21 06:24 Potassium 4.5 mmol/L (3.5-5.1) 11/25/21 06:24 Chloride 106 mmol/L (98-107) 11/25/21 06:24 Carbon Dioxide 26 mmol/L (21-32) 11/25/21 06:24 Anion Gap 4 (3-11) 11/25/21 06:24 BUN 30 mg/dl (6-23) H 11/25/21 06:24 Creatinine 1.63 mg/dl (0.6-1.2) H 11/25/21 06:24 Est Cr Clr Drug Dosing 24.3 ml/min 11/25/21 06:24 Est GFR ( Amer) 33.7 ml/min 11/25/21 06:24 Est GFR (Non-Af Amer) 29.0 ml/min 11/25/21 06:24 BUN/Creatinine Ratio 18.4 (10-20) 11/25/21 06:24 Glucose 101 mg/dl (70-99(Fasting)) H 11/25/21 06:24 POC Glucose 92 mg/dl (70-99) 11/25/21 08:21 Calcium 7.9 mg/dl (8.5-10.1) L 11/25/21 06:24 SARS-CoV-2, RNA, NAAT NEGATIVE (NEGATIVE) 11/24/21 Unknown Blood Type A Positive 11/24/21 09:05 Antibody Screen NEGATIVE 11/24/21 09:05 Impressions Knee X-Ray 11/24/21 15:48 RIGHT KNEE 2 VIEWS History: Right total knee arthroplasty. Degenerative arthritis. Postop. FINDINGS: The patient is status post a right total knee arthroplasty. The hardware is intact. No fracture or dislocation. Skin schuyler and surgical drains are in place. IMPRESSION: Right total knee arthroplasty. No evidence for hardware complication. ACT 112: Negative or not required by law. Electronically signed by: Maury Marsh M.D. 11/24/2021 4:14 PM (1) Instability of knee joint Laterality: right Qualified Code(s): M25.361 - Other instability, right knee
--- NOTE | 2021-11-25 10:00 | Pharmacy Report ---
Pharmacy Glycemic Short Note 2 - Date of Service November 25, 2021 - Glycemic Short BSG Results (Last 24 hours): 11/24/21 11/24/21 11/24/21 12:01 15:46 17:10 Glucose POC Glucose 89 80 64 L* 11/24/21 11/24/21 11/25/21 18:42 20:40 00:21 Glucose POC Glucose 133 H 129 H 86 11/25/21 11/25/21 11/25/21 04:05 06:24 08:21 Glucose 101 H POC Glucose 132 H 92 OUTPATIENT ANTIDIABETIC REGIMEN: * Toujeo 88 units SQ HS * Victoza 1.8 mg SQ daily * Novolog 8 units SQ TID ASSESSMENT: 11/25/21: * 81 y/o F admitted for R knee revision. Patient with history of Type 2 diabetes managed at home on basal and bolus insulins and Victoza. * Victoza is on hold while admitted. * BSGs yesterday were 201-86-742-129-86 mg/dl. * Basal dose of 15 units was given last night. Continued same today. * Fasting BSG today is surprisingly well controlled at 92 mg/dl after a significant dose reduction in basal dose last night PLAN FOR INPATIENT GLYCEMIC CONTROL: * Hold outpatient diabetes medications * Basal insulin * Lantus 15 units SQ HS * Bolus insulin * NovoLog per scale ACHS or Q6hrs while NPO * Goal Range: Low 110 mg/dL - High 140 mg/dL * Correction Factor: 30 mg/dL/unit * Nutritional / Prandial insulin per carb ratio of 1 unit per 10 grams CHO consumed
[2021-11-25] MEDS: GABAPENTIN 300 MG CAP PO SCH (13:11)
--- NOTE | 2021-11-25 13:11 | Hospitalist Progress Note ---
Date of Service November 25, 2021 Assessment & Plan (1) Instability of knee joint: Plan: POD #0 from Right Knee Tibial Poly Exchange, Patellar Revision, with synovectomy(Right) and superficial wound VAC application - Pain control per primary Orthopaedics service- Appropriate with rescue Narcan Available - ABX- Per primary Orthopaedics service - VTE- SCDs, chemoproph- per primary Orthopaedics service- ASA per notes - IVF- per primary Orthopaedics service - Wound care- per primary Orthopaedics service - Transfusion needs per primary Orthopaedics service - PT/OT- per primary Orthopaedics service - Drains/Vacs- per primary Orthopaedics service - Restart ASA when hemostasis is ensured per primary Orthopaedics service (2) Hypertension: Plan: Currently hypotensive but with MAPS >65- variable BPs reported at home- Amlodopine was recently added as outpatient On extended review of hypertension history with patient she reports that she generally actually has low blood pressure at home, and has had symptoms of orthostasis/lightheadedness/dizziness when standing for some time. She reports she does have intermittent high blood pressure and sometimes high blood pressure at the doctor's office when checked. History is concerning for whitecoat hypertension, with home experience of orthostasis. This was also prior to her most recent blood pressure addition, and she thinks that this feeling was somewhat worsened by it. Postop patient is doing well, ambulating well, worked with physical therapy without lightheadedness/dizziness/syncope. Her amlodipine, hydrochlorothiazide, and losartan have all been held. She was somewhat hypotensive this morning but has improved to 120/63. At this point would hold her amlodipine and hydrochlorothiazide as these are not giving her secondary benefit, continue losartan and metoprolol at home. Patient counseled to check her home blood pressures and if she remains high can restart hydrochlorothiazide at that point. Otherwise would follow-up within the next week or 2 for outpatient blood pressure checks and additional management. Discussed patient that she should have a BMP to recheck her potassium levels within 1 week as holding hydrochlorothiazide may cause these to increase. May continue doxazosin at this time. Risk of aggressive blood pressure control for stroke/cardiac benefit is offset by patient's report of orthostasis and high fall risk, but is doing well at time of assessment prior to discharge and medically stable for discharge and follow-up to PCP. (3) Hyperlipidemia: Plan: Continue with Zocor 40mg QHS (4) Hypothyroidism: Plan: Continue synthroid 100mcg (5) Gout: Plan: Continue prophylaxis with Allopurinol (6) Diabetes mellitus, type 2: Plan: GLycemic pharmacy consult placed by primary Orthopaedics consult - follow- goal <180 May resume home regimen on discharge, no acute changes at this time Patient does report 1 or 2 low blood sugar episodes at home, but none recently and feels her blood sugars are stable as an outpatient. 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 Continue Ranexa. Continue aspirin as above. No acute coronary signs at time of assessment (9) GERD (gastroesophageal reflux disease): Plan: GERD- famotidine- recent addition- continue (10) Acute blood loss anemia: Plan: No preop value available, patient asymptomatic and normotensive, no tachycardia at time of assessment No indication for transfusion at this time If discharged today would repeat CBC for stability within 1 week Admission and Anticipated Discharge Date Admission Date: November 24, 2021 Subjective Seen at bedside this morning. Patient reports she feels well postop, and has had no pain and has not required additional pain control medications. She is very pleased with the outcome of her procedure. She was able to ambulate well with physical therapy this morning and had no lightheadedness, dizziness, feeling of presyncope or syncope. She reports previously when she is anemic with blood loss she immediately felt symptoms like these, but these have not been present on this admission. In discussing her antihypertensive control patient reports that she does have low blood pressure episodes at home. Reports that she does intermittently have high blood pressure, and sometimes at the physician's office as well, but overall has low blood pressure with some lightheadedness and dizziness when standing. She is not fallen and hit in her head from the symptoms, has not lost consciousness from the symptoms. Did have one episode which occurred in context of low blood sugar, but overall reports her blood sugars are "good ". At time of assessment has no chest pain, chest pressure. Review of Systems Review of Systems: All systems reviewed & are unremarkable except as noted in Subjective Physical Exam Physical Exam: General: A&Ox3. NAD. Cooperative. HEENT: Atraumatic, normocephalic. And hearing grossly intact. Pulm: CTAB A&P. -wheezes, -rales, -rhonchi. Symmetrical chest rise. No increase in work of breathing. No respiratory distress. Cardiac: RRR, systolic murmur present, no rubs or gallops. Radial pulses intact and symmetrical. Abdominal: Nontender, nondistended, soft. BS present. Extremities: Right distal extremity with postop wrap/dressing, drain in place draining serosanguineous fluid. Sensation in distal right and left extremity intact to soft touch, intact in hands to soft touch without asymmetry. Artist'S Manager strength 5/5 bilaterally, ankle dorsiflexion/plantarflexion in the left intact. Results & Data Results & Data ([facility]) Vital Signs (Past 12 Hours) Vital Signs Temp Pulse Pulse Resp BP Pulse Ox 11/25/21 10:53 36.4 C L 60 16 120/63 92 11/25/21 07:19 36.5 C 65 16 95/51 L 90 11/25/21 02:30 36.6 C 57 L 18 102/58 L 94 PG Care Time/CCT Total # of Minutes Spent Total Time Spent with Patient: Total time spent is greater than 50% in coordination of care (as documented) at patient's floor/unit and/or counseling patient: Coding Level of Care Code 00414 Subseq Hosp Care Lvl 2 Diagnoses Hypertension I10 Acute blood loss anemia D62 Instability of knee joint M25.361 Laterality: right Hyperlipidemia E78.5 Hypothyroidism E03.9 Gout M10.9 Diabetes mellitus, type 2 E11.9 Chronic kidney disease N18.9 CAD (coronary artery disease) I25.10 GERD (gastroesophageal reflux disease) K21.9 (1) Instability of knee joint Laterality: right Qualified Code(s): M25.361 - Other instability, right knee
[2021-11-25] MEDS ORDERED: METOPROLOL SUCC 50MG EXT REL TAB PO SCH (21:00)
[2021-11-25] MEDS ORDERED: INSULIN GLARGINE SOLOSTAR 100 UNITS/ML 3 ML PEN SC SCH (21:00)
--- NOTE | 2021-11-26 18:42 | Discharge Summary ---
Date of Service November 26, 2021 Admission HPI Per Admitting Provider 81-year-old female with past medical history significant for NARAYAN, diabetes mellitus type 2, hypothyroidism, hypertension, CAD, CKD who presents with ongoing right knee pain and instability. Pain is interfering with daily activities. Her exam and history are consistent with a fracture polyethylene post. She would like to proceed with surgical intervention. Patient denies headaches, sweats, fevers, chills, double vision, blurred vision, cough, sore throat, dysphagia, chest pain, sob, wheezing, n/v/d/c, numbness, tingling, fatigue, urinary symptoms, mood disorders. ROS positive for right knee pain and instability. Admission Exam Per Admitting Provider Constitutional: well developed and well nourished; no acute distress Eyes: PERRL, conjunctivae normal, anicteric sclerae ENMT: external ear and nose normal, oropharynx normal Neck: trachea midline, no thyromegaly Respiratory: normal respiratory effort, lungs clear to auscultation Cardiovascular: RRR, no murmur, no edema Musculoskeletal: Right knee: There is no erythema. Mild to moderate effusion. She has well-healed surgical incision. Range of motion is 0 to 120 degrees. Positive valgus varus stress test, positive posterior drawer. She has subluxation consistent with a fractured post on posterior drawer. Skin: no rashes, warm and dry Neurologic: patellar DTR's 2+ bilat, sensation intact Psychiatric: A+Ox3, euthymic affect Principal Diagnosis Right knee failure of polyethylene post, patellar loosening Discharge Exam Dressings C/D/I. Calves soft, NT. NV intact. Toes mobile. Good DF/PF. HV drainage 75ml from previous shift. Constitutional well developed and well nourished; no acute distress Skin no rashes, warm and dry Psychiatric A+Ox3, euthymic affect Discharge Data Allergies Allergy/AdvReac Type Severity Reaction Status Date / Time Penicillins Allergy Unknown Hives Verified 11/24/21 09:46 naproxen AdvReac Unknown Nausea Verified 11/24/21 09:46 oxycodone [From OxyContin] AdvReac Unknown N/V Verified 11/24/21 09:46 Consultations 11/20/21 16:27 Consult Hospitalist Routine Procedures Performed Operation Date: 11/24/21 11:15 Actual Procedures p Right Knee Tibial Poly Exchange, Patellar Revision, with synovectomy(Right) - Ricardo Balderas MD Ordered Studies 11/24/21 05:00 US - OR guided needle placemen Routine Hospital Course (1) Instability of knee joint: Patient presented for same day admission following right knee poly exchange, patella revision on 11/24/21. She tolerated procedure well. The Patient had an uneventful hospital course. Post-operatively, her activity was progressed and well tolerated. They participated in PT with ambulation distance of 165 feet. ROM of operative knee reached 90 degrees. Labs as below. Dr. Barrera of medical service was consulted for medical management during admission. Pain controlled on oral medications. Please refer to daily progress notes and PT notes for complete details. After exam on 11/25/20, patient was felt to be stable for discharge home with home health PT. Patient will f/u in the office in about 2 weeks for further evaluation including x-rays and incision check, sooner if having any issues or concerns. POD 1 s/p Polyethylene bearing change/Patellar revision PT/OT protocols. WBAT. DVT prophylaxis - ASA po bid, SCD's, YIFAN's Pain management as written Hgb 8.7; down from 11.2; Hypotensive but asymptomatic. Will discuss with Med service. Plan for recheck today for possbile dc to home. DC planning - Planning for services Lab Results 11/24/21 11/24/21 11/24/21 Range/Units 09:05 09:11 12:01 WBC (4.8-10.8) K/uL RBC (4.2-5.4) M/uL Hgb (12.0-16.0) g/dL Hct (37-47) % MCV (80-100) fL MCH (25-34) pg MCHC (32-36) g/dL RDW Std Deviation (36.4-46.3) fL RDW Coeff of Titus (11.5-14.5) % Plt Count (130-400) K/uL MPV (7.4-10.4) fL Sodium (136-145) mmol/L Potassium (3.5-5.1) mmol/L Chloride (98-107) mmol/L Carbon Dioxide (21-32) mmol/L Anion Gap (3-11) BUN (6-23) mg/dl Creatinine (0.6-1.2) mg/dl Est Cr Clr Drug Dosing ml/min Est GFR ( Amer) ml/min Est GFR (Non-Af Amer) ml/min BUN/Creatinine Ratio (10-20) Glucose (70-99(Fasting)) mg/dl POC Glucose 119 H 89 (70-99) mg/dl Calcium (8.5-10.1) mg/dl SARS-CoV-2, RNA, NAAT (NEGATIVE) Blood Type A Positive Antibody Screen NEGATIVE 11/24/21 11/24/21 11/24/21 Range/Units 15:46 17:10 18:42 WBC (4.8-10.8) K/uL RBC (4.2-5.4) M/uL Hgb (12.0-16.0) g/dL Hct (37-47) % MCV (80-100) fL MCH (25-34) pg MCHC (32-36) g/dL RDW Std Deviation (36.4-46.3) fL RDW Coeff of Titus (11.5-14.5) % Plt Count (130-400) K/uL MPV (7.4-10.4) fL Sodium (136-145) mmol/L Potassium (3.5-5.1) mmol/L Chloride (98-107) mmol/L Carbon Dioxide (21-32) mmol/L Anion Gap (3-11) BUN (6-23) mg/dl Creatinine (0.6-1.2) mg/dl Est Cr Clr Drug Dosing ml/min Est GFR ( Amer) ml/min Est GFR (Non-Af Amer) ml/min BUN/Creatinine Ratio (10-20) Glucose (70-99(Fasting)) mg/dl POC Glucose 80 64 L* 133 H (70-99) mg/dl Calcium (8.5-10.1) mg/dl SARS-CoV-2, RNA, NAAT (NEGATIVE) Blood Type Antibody Screen 11/24/21 11/24/21 11/25/21 Range/Units 20:40 Unknown 00:21 WBC (4.8-10.8) K/uL RBC (4.2-5.4) M/uL Hgb (12.0-16.0) g/dL Hct (37-47) % MCV (80-100) fL MCH (25-34) pg MCHC (32-36) g/dL RDW Std Deviation (36.4-46.3) fL RDW Coeff of Titus (11.5-14.5) % Plt Count (130-400) K/uL MPV (7.4-10.4) fL Sodium (136-145) mmol/L Potassium (3.5-5.1) mmol/L Chloride (98-107) mmol/L Carbon Dioxide (21-32) mmol/L Anion Gap (3-11) BUN (6-23) mg/dl Creatinine (0.6-1.2) mg/dl Est Cr Clr Drug Dosing ml/min Est GFR ( Amer) ml/min Est GFR (Non-Af Amer) ml/min BUN/Creatinine Ratio (10-20) Glucose (70-99(Fasting)) mg/dl POC Glucose 129 H 86 (70-99) mg/dl Calcium (8.5-10.1) mg/dl SARS-CoV-2, RNA, NAAT NEGATIVE (NEGATIVE) Blood Type Antibody Screen 11/25/21 11/25/21 11/25/21 Range/Units 04:05 06:24 06:24 WBC 5.89 (4.8-10.8) K/uL RBC 2.89 L (4.2-5.4) M/uL Hgb 8.7 L (12.0-16.0) g/dL Hct 26.7 L (37-47) % MCV 92.4 (80-100) fL MCH 30.1 (25-34) pg MCHC 32.6 (32-36) g/dL RDW Std Deviation 47.6 H (36.4-46.3) fL RDW Coeff of Titus 14.0 (11.5-14.5) % Plt Count 186 (130-400) K/uL MPV 10.1 (7.4-10.4) fL Sodium 136 (136-145) mmol/L Potassium 4.5 (3.5-5.1) mmol/L Chloride 106 (98-107) mmol/L Carbon Dioxide 26 (21-32) mmol/L Anion Gap 4 (3-11) BUN 30 H (6-23) mg/dl Creatinine 1.63 H (0.6-1.2) mg/dl Est Cr Clr Drug Dosing 24.3 ml/min Est GFR ( Amer) 33.7 ml/min Est GFR (Non-Af Amer) 29.0 ml/min BUN/Creatinine Ratio 18.4 (10-20) Glucose 101 H (70-99(Fasting)) mg/dl POC Glucose 132 H (70-99) mg/dl Calcium 7.9 L (8.5-10.1) mg/dl SARS-CoV-2, RNA, NAAT (NEGATIVE) Blood Type Antibody Screen 11/25/21 11/25/21 Range/Units 08:21 11:59 WBC (4.8-10.8) K/uL RBC (4.2-5.4) M/uL Hgb (12.0-16.0) g/dL Hct (37-47) % MCV (80-100) fL MCH (25-34) pg MCHC (32-36) g/dL RDW Std Deviation (36.4-46.3) fL RDW Coeff of Titus (11.5-14.5) % Plt Count (130-400) K/uL MPV (7.4-10.4) fL Sodium (136-145) mmol/L Potassium (3.5-5.1) mmol/L Chloride (98-107) mmol/L Carbon Dioxide (21-32) mmol/L Anion Gap (3-11) BUN (6-23) mg/dl Creatinine (0.6-1.2) mg/dl Est Cr Clr Drug Dosing ml/min Est GFR ( Amer) ml/min Est GFR (Non-Af Amer) ml/min BUN/Creatinine Ratio (10-20) Glucose (70-99(Fasting)) mg/dl POC Glucose 92 103 H (70-99) mg/dl Calcium (8.5-10.1) mg/dl SARS-CoV-2, RNA, NAAT (NEGATIVE) Blood Type Antibody Screen Total Time Total Time Spent Total Time Spent (In Minutes): 20 Discharge Plan Discharge Items Patient Disposition: Home - Self-Care Reason For Visit: Mechanical Loosesening of Internal Right Knee Pros Discharge Diagnosis: Mechanical Loosening of Right TKA Activity: Per Instructions section Weightbearing: Right weightbearing Weightbearing Comment: as tolerated with walker Non-emergency contact: Surgeon Call non-emergency contact if: your pain is not controlled, your temperature is above 101.5, your wound has increased redness and your wound has increased drainage Follow-up/Referrals: Daniel Kohli [Primary Care Provider] - 12/02/21 2:15 pm Ricardo Balderas MD [Surgeon] - 12/05/21 11:00 am (Follow up in 2 weeks for your first wound check. ) Diet: Carb Consistent or DM2 Ambulatory Orders: Basic Metabolic Panel (Routine) Timeframe: 3 Days Location: Determined by Patient Ordered By: Rui Musa Complete Blood Count with Diff (Routine) Timeframe: 3 Days Location: Determined by Patient Ordered By: Rui Musa Addtl Attending Provider Instructions: A FEW OF YOUR BLOOD PRESSURE MEDICATIONS HAVE BEEN HELD AT THIS TIME. PLEASE SEE YOUR PRIMARY CARE PROVIDER IN 1 WEEK TO HAVE YOUR BLOOD PRESSURE MEDICATION RECHECKED AND MEDICATIONS ADJUSTED. PLEASE CHECK YOUR BLOOD PRESSURE DAILY AND RECORD THE RESULTS FOR YOUR PRIMARY CARE PROVIDER YOU WILL NEED TO GET YOUR BLOOD DRAWN IN THE NEXT FEW DAYS TO RECHECK YOUR BLOOD COUNT AND YOUR POTASSIUM. THE RESULTS OF THESE TESTS SHOULD GO TO YOUR PRIMARY CARE PROVIDER. ACTIVITY RECOMMENDATIONS: SELF CARE INSTRUCTIONS AFTER TOTAL KNEE REPLACEMENT A. You may need to continue a physical therapy program after discharge from the hospital. There are several options available to you. Your doctor will assist you in selecting the best one for you. 1. An out-patient facility 2 to 3 times a week for therapy or home therapy. 2. Continue working on all exercises taught to you in the hospital. Your goals should be to increase bending of your knee to 90 degrees and beyond and to fully straighten your knee. B. You may progress at your own pace from walking with a walker or crutches to a cane; then to no assistive devices. C. Make walking a part of your daily routine. Be up as much as comfortable with rest periods throughout the day. Rest with leg elevation is very important. Use the ice wrap frequently for the first 3-4 weeks. D. There are no restrictions on activities. You may ride in a car, shop, participate in beauty culturist apprentice and all social activities. E. Wear the long elastic stockings (YIFAN hose) 20 hours a day for 2 weeks after surgery. They can be removed several times a day for laundering and for a bath. F. You may shower, no tub baths until cleared by your doctor. SPECIAL CARE INSTRUCTIONS: VERY IMPORTANT TO READ AND REVIEW A. There are a few signs you need to watch for after you are home. Call [facility] if you notice any of the followin. Increased severe knee pain. Some pain is expected especially when you exercise. 2. Increased swelling in your leg or knee; pain or swelling of the calf muscle in either lower leg. 3. Any fluid drainage from the incision. 4. Shortness of breath or chest pain. B. Please call [facility] at if you have any concerns or questions about your operation or recovery. The doctor or his nurse will return your call promptly. C. You must take antibiotics before dental work, bladder, bowel or other surgery. Your doctor will provide you with a permanent care to carry describing this precaution. IMPORTANT: * REMEMBER TO TAKE ASPIRIN, 81 MG, TWICE DAILY FOR 4 WEEKS UNLESS OTHERWISE DIRECTED. THIS IS YOUR BLOOD THINNER. * CALL IF INCREASED PAIN, REDNESS, DRAINAGE OR FEVER GREATER THAT 101. * WEAR YIFAN HOSE 20 HOURS PER DAY FOR 2 WEEKS. * MARILY Dressing - This is a large suction dressing covering your incision. This will help pull any excess drainage from the wound and allow your incision to heal properly. You may shower with this if you can keep the unit outside of the shower. If any bleeding or leakage is noted please call your doctor's office. This will remain on your incision for 7 days and then should be removed. This can be done yourself or by the home nursing staff if applicable. The entire unit is disposable once removed. Once removed, keep incision clean and dry. If redness or drainage is noted, please call your surgeon. . FOLLOW UP VISIT: If appointment is not already scheduled: Please call [facility] to make a follow-up appointment for 2 weeks after your surgery at . Stand-Alone Forms: [employer], Smoking Cessation Medications and DC Order Prescriptions: New aspirin 81 mg Tablet,Delayed Release (Dr/Ec) 81 mg PO BID 30 Days Qty: 60 RF: 0 hydrocodone-acetaminophen 5-325 mg tablet 1 - 2 tab PO Q6H MDD 8 tabs PRN (Reason: pain) Qty: 30 RF: 0 polyethylene glycol 3350 [Miralax] 17 gram powder in packet 17 g PO DAILY PRN (Reason: constipation) Qty: 5 RF: 0 sulfamethoxazole-trimethoprim [Bactrim DS] 800-160 mg tablet 1 tab PO Q12H Qty: 14 RF: 0 Continued Toujeo Max U-300 SoloStar 300 unit/mL (3 mL) Insulin Pen 88 unit SUBCUT PM RF: 0 cholecalciferol (vitamin D3) [Vitamin D3] 125 mcg (5,000 unit) Tablet 125 mcg PO QAM RF: 0 cholecalciferol (vitamin D3) [Vitamin D3] 25 mcg (1,000 unit) Tablet,Chewable 25 mcg PO PM RF: 0 famotidine 20 mg Tablet 20 mg PO BID RF: 0 doxazosin 1 mg Tablet 1 mg PO HS RF: 0 insulin aspart U-100 [Novolog U-100 Insulin aspart] 100 unit/mL Solution 8 unit SUBCUT TID RF: 0 gabapentin 300 mg Capsule 300 mg PO BID RF: 0 Victoza 2-Kam 0.6 mg/0.1 mL (18 mg/3 mL) Pen Injector 0.6 mg SUBCUT QPM RF: 0 cyanocobalamin (vitamin B-12) 5,000 mcg Capsule 5,000 mcg PO QAM RF: 0 metoprolol succinate 100 mg Tablet Extended Release 24 Hr 100 mg PO PM RF: 0 allopurinol 100 mg Tablet 100 mg PO QPM RF: 0 simvastatin 40 mg Tablet 40 mg PO HS RF: 0 alprazolam 0.25 mg Tablet 0.25 - 0.5 mg PO BID PRN (Reason: Anxiety) RF: 0 losartan 100 mg Tablet 100 mg PO HS RF: 0 levothyroxine 100 mcg Capsule 100 mcg PO QAM RF: 0 magnesium 250 mg Tablet 500 mg PO QAM RF: 0 Discontinued amlodipine 2.5 mg Tablet 2.5 mg PO QPM RF: 0 hydrochlorothiazide 12.5 mg Capsule 12.5 mg PO QAM RF: 0 aspirin [Aspir-81] 81 mg Tablet,Delayed Release (Dr/Ec) 81 mg PO QAM RF: 0 Discharge Orders: Discharge Order (Routine); Ordered 11/25/21 Ordered By: Rui Musa Admission Data Admit Date/Time: 11/24/21 15:48 Attending Provider: Naveed Barrera Admit Provider: Ricardo Balderas Primary Care Provider: Daniel Kohli Other Providers: Daniel Irby Other Interventions: Discharge Summary Assessment (RN) Last Done: 11/25/21 13:52
== END 2021-11-25 15:56 | disposition home or self-care (01) ==
LOC: ASU 08:43 → 3E 08:43 → SUATTDRO 15:48

== ENCOUNTER 2024-02-21 16:50 | Inpatient (IN) ==
--- NOTE | 2024-02-21 16:56 | ED Triage Note ---
Date of Service February 21, 2024 Provider in Triage Author: Inna Varghese History of Present Illness This patient was briefly evaluated while in triage. An abbreviated physical exam was performed. This patient is a 83-year-old Female who presents to the ED for evaluation of trouble breathing and coughing since last Wednesday. Feels dizzy and trouble walking also. Worse with lying down or exertion. No fevers, nausea, or vomiting. Denies chest pain. States takes eliquis for artery disease in heart. Physical Exam CONSTITUTIONAL: No acute distress. Appears fatigued. HEENT: Airway patent. RESPIRATORY: Clear to auscultation bilaterally. Equal expansion bilaterally. CARDIOVASCULAR: Tachycardic, Irregularly irregular rate and rhythm. Normal peripheral perfusion. GASTROINTESTINAL: Soft, nontender. NEUROLOGIC: Alert and oriented X 4. Patient tachycardic in 130s and irregular rate and rhythm, suspect rapid Afib. Initial orders for labs and / or imaging were placed and patient was placed directly into a room. Please see further documentation for the full ED course.
[2024-02-21 17:30] LABS: Basophils # (auto) 0.05 K/uL (0.00-0.20); Basophils % (auto) 0.4 %; Eosinophils # (auto) 0.09 K/uL (0.00-0.50); Eosinophils % (auto) 0.8 %; Hematocrit (blood only) 35.4 % (37.0-47.0); Immature Granulocytes # (auto) 0.09 K/uL (0.01-0.20); Immature Granulocytes % (auto) 0.8 %; Lymphocytes # (auto) 2.11 K/uL (1.20-3.40); Lymphocytes % (auto) 18.1 %; Mean Corpuscular Hemoglobin 30.5 pg (25.0-34.0); Mean Corpuscular Hgb Conc 33.9 g/dL (32.0-36.0); Mean Corpuscular Volume 89.8 fL (80.0-100.0); Monocytes % (auto) 11.2 %; Neutrophils % (auto) 68.7 %; Platelet Count 196 K/uL (130-400); RDW Coefficient of Variation 13.9 % (11.5-14.5); RDW Standard Deviation 45.6 fL (36.4-46.3); Red Blood Count 3.94 M/uL (4.20-5.40); White Blood Count 11.64 K/ul (4.8-10.8)
[2024-02-21] MEDS: SODIUM CHLORIDE 0.9% 250 ML IV ONE (17:35)
[2024-02-21 17:44] LABS: Albumin Globulin Ratio 0.9 (0.9-2); Albumin Level 3.5 gm/dl (3.4-5.0); BUN Creatinine Ratio 14.2 (10-20); Bilirubin,Total 0.7 mg/dl (0.2-1.0); Calcium 9.4 mg/dl (8.6-10.3); Creatinine Clr Calc Pharmacy 15.5 ml/min; Est GFR (African American) 27.6 ml/min; Est GFR (Non-African American) 23.8 ml/min; Globulin 4.1 gm/dl (2.5-4.0); Magnesium 1.5 mg/dl (1.7-2.4); Potassium 3.9 mmol/L (3.5-5.1); Total Protein 7.6 gm/dl (6.0-8.3)
[2024-02-21] MEDS: METOPROLOL TARTRATE 1 MG/ML VIAL IV STA ×2 (17:48→18:59)
[2024-02-21 17:50] LABS: Troponin I High Sensitivity 12.2 pg/ml (0-14)
[2024-02-21 17:55] LABS: INR 1.2 (0.9-1.1); Partial Thromboplastin Ratio 1.4; Partial Thromboplastin Time 38 Seconds (21-31); Prothrombin Time 12.8 Seconds (9.0-12.0)
[2024-02-21 18:09] LABS: Adenovirus PCR Not Detected (NotDetected); Bordetella parapertussis PCR Not Detected (NotDetected); Bordetella pertussis PCR Not Detected (NotDetected); Chlamydia pneumoniae PCR Not Detected (NotDetected); Coronavirus 229E PCR Not Detected (NotDetected); Coronavirus CoV-2 (COVID19)PCR Not Detected (NotDetected); Coronavirus HKU1 PCR Not Detected (NotDetected); Coronavirus NL63 PCR Not Detected (NotDetected); Coronavirus OC43PCR Not Detected (NotDetected); Human Metapneumovirus PCR Not Detected (NotDetected); Influenza A PCR Not Detected (NotDetected); Influenza B PCR Not Detected (NotDetected); Mycoplasma pneumoniae PCR Not Detected (NotDetected); Parainfluenza Virus 1 PCR Not Detected (NotDetected); Parainfluenza Virus 2 PCR Not Detected (NotDetected); Parainfluenza Virus 3 PCR Not Detected (NotDetected); Parainfluenza Virus 4 PCR Not Detected (NotDetected); Respiratory Syncytial VirusPCR Not Detected (NotDetected); Rhinovirus/Enterovirus PCR Not Detected (NotDetected)
--- NOTE | 2024-02-21 18:31 | XRay Report ---
SINGLE VIEW CHEST CLINICAL HISTORY: Dyspnea FINDINGS: An AP, portable, upright chest radiograph is compared to study dated 02/06/2021. The heart is enlarged noting atherosclerotic calcification of the thoracic aorta. There is pulmonary vascular con gestion. Bibasilar opacities are noted. No large pleural effusion or pneumothorax is seen. The bony t horax is grossly intact. Bilateral shoulder arthroplasties are in place. IMPRESSION: 1. Cardiomegaly with pulmonary vascular congestion. 2. Bibasilar opacities likely represent scarring/atelectasis. Correlate clinically for evidence of a superimposed infectious/inflammatory pneumonitis. Radiographic follow-up to resolution is recommended . ACT 112: Negative or not required by law. Electronically signed by: Jimi Fitzpatrick M.D. 02/21/2024 6:30 PM
--- NOTE | 2024-02-21 18:37 | Emergency Department Note ---
Impression & Plan Atrial fibrillation with rapid ventricular response, Pneumonia, Weakness ED Provider Note Provider: Mike Moon MD DATE OF SERVICE: 02/21/2024 CHIEF COMPLAINT: Cough, trouble breathing, fatigue HISTORY OF PRESENT ILLNESS: Patient is a 83-year-old female history of type 2 diabetes, CKD, CAD, hypertension, hypothyroidism maintained on Eliquis but no history of A-fib or blood clots according the patient presenting here reporting over the past 6 days or so she has been experiencing productive yellow cough and some trouble breathing. Feeling at times little bit dizzy and fatigued. No falls. No fevers or nausea or vomiting or abdominal pain reported. Denies chest pain. States she takes a blood thinner not for clots or A-fib but because one of the arteries in her heart is nearly blocked. Seen at [facility] and sent here for evaluation. No other recent sick contacts. No significant leg swelling reported. Maybe a bit of a headache earlier. PAST MEDICAL HISTORY: As noted above MEDICATIONS: Reviewed home medications and states compliant FMH: Brother with A-fib SOCIAL HISTORY: Non-smoker PHYSICAL EXAM: GENERAL: alert and oriented in no acute distress on stretcher fatigued and appeared Head: normocephalic and atraumatic EYES: No injection, discharge or icterus. EOMI. NECK: Trachea midline. Supple. ENT: Mucous membranes pink and moist. Right TM partially obscured by cerumen with evidence of mastoid swelling or obvious purulence there. Left TM does appear with some white purulence and erythema without signs of perforation LUNGS: Airway patent. No retractions. Breath sounds clear with diminished lung bases however HEART: Irregular regular tachycardic rate and rhythm. No chest wall tenderness ABDOMEN: Soft and non-tender, without guarding or rebound. SKIN: Acyanotic, warm, dry, without rashes EXTREMITIES: Without swelling, tenderness or deformity NEUROLOGICAL: No focal deficits. No aphasia. No facial droop or slurred speech. Ambulatory to transfer from wheelchair to bed with minimal assistance EK beats per minute in atrial fibrillation rapid ventricular response. Left axis. QTc 450. No acute ST segment elevation appreciated. CONTINUOUS CARDIAC MONITORING: was ordered and showed a heart rate of 90s-130s bpm in A-fib Patient's laboratory studies and imaging reviewed. Differential includes Infection, dehydration, metabolic abnormality, hypo/hyperglycemia, electrolyte disturbance, anemia, hypoxia, cardiac sources, intracerebral event, toxicologic, neurologic, as well as other pathologies. IMPRESSION/MEDICAL DECISION MAKING: No significant focal numbness or weakness. Does not seem confused. Doubt CVA. Little bit headache earlier. Will obtain a CT of the head to exclude intra- abdominal bleed. Is chronically anticoagulated she reports for a blocked artery in her heart but denies a history of A-fib to me or PE/DVT. Generally fatigued. States compliance with home medications includes Eliquis as well as metoprolol. Did some decreased intake reported by the patient without significant chest pain or headache. Unsteady and easily fatigued with exertion. Noted in triage to be in rapid A-fib and brought to room. Respiratory viral panel negative. Chest x-ray questions per radiology some pulm vascular congestion as well as possibly bibasilar opacities infectious versus inflammatory. Does report a productive cough. Tachycardic but not hypoxic. Blood work with leukocytosis without anemia. Stable CKD and very minimal hyponatremia. Procalcitonin is elevated 1.09. Will obtain lactate as well as cultures. Lactate not elevated. Doubt sepsis. Given a bit of generalized fluid hydration as well as magnesium supplementation. Will attempt metoprolol for some better rate control monitoring her blood pressure. Question possible pneumonia given the history and the x-ray findings with her blood work and will cover empirically with ceftriaxone. Some hives with penicillin years ago. This will cover any possible pneumonia as well as any possible ear infection. Doubt mastoiditis. Patient agreeable to plan to stay in the hospitalist team will be contacted. Avoiding additional significant IV fluids given concern for some possible fluid overload based on the chest x-ray. Did receive a 250 mL fluid bolus. DIAGNOSIS: A-fib RVR, weakness, pneumonia, AOM DISPOSITION: Hospitalist will evaluate Patient was agreeable with this plan. Past Med/Surg History Problem List (Updated 02/21/24 @ 18:53 by Mike Moon M.D.) Weakness (Acute) Pneumonia (Acute) Atrial fibrillation with rapid ventricular response (Acute) Acute blood loss anemia Hypothyroidism Hypertension Hyperlipidemia Gout GERD (gastroesophageal reflux disease) Controlled Diabetes mellitus, type 2 IDDM Chronic kidney disease Follows with Dr. 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 Medically managed Instability of knee joint Encounter for pre-operative examination Medical History (Updated 06/17/24 @ 18:53 by Mike Moon M.D.) Anemia Chronic, baseline hgb 10-11 range History of claustrophobia Surgical History History of cardiac cath 2019> no stents History of cholecystectomy History of hysterectomy Total History of total shoulder replacement R/L History of total knee replacement R/L History of colonoscopy 2019 Family History Mother Family history of diabetes mellitus Social History Smoking Status: Never smoker Second Hand Exposure: No; Do You Dip or Chew Tobacco: No; Hx Alcohol Use: Yes Alcohol type: beer Hx Substance Use: No Preferred Language: Slovenian Communication Ability: Effective River Captain Required: No Beliefs That Will Affect Care: None Current Living Situation: Spouse Feels Safe at Home: Yes Assistive Devices: Walker Allergies Allergies Allergy/AdvReac Type Severity Reaction Status Date / Time Penicillins Allergy Intermediate Hives Verified 02/21/24 17:59 oxycodone [From OxyContin] AdvReac Intermediate N/V Verified 02/21/24 17:59 naproxen AdvReac Mild Nausea Verified 02/21/24 17:59 Home Meds Home Medications Medication Instructions Recorded Confirmed allopurinol 100 mg tablet 100 mg PO QPM 01/27/21 02/21/24 alprazolam 0.25 mg tablet 0.25 - 0.5 mg PO BID PRN Anxiety 01/27/21 02/21/24 cyanocobalamin (vitamin B-12) 5,000 mcg PO QAM 01/27/21 02/21/24 5,000 mcg capsule doxazosin 1 mg tablet 1 mg PO HS 01/27/21 02/21/24 gabapentin 300 mg capsule 300 mg PO BID 01/27/21 02/21/24 insulin aspart U-100 100 unit/mL 8 unit subcut TIDM 01/27/21 02/21/24 subcutaneous solution (Novolog U-100 Insulin aspart) levothyroxine 100 mcg capsule 100 mcg PO QAM 01/27/21 02/21/24 losartan 100 mg tablet 100 mg PO HS 01/27/21 02/21/24 magnesium 250 mg tablet 500 mg PO QAM 01/27/21 02/21/24 metoprolol succinate 100 mg 100 mg PO PM 01/27/21 02/21/24 tablet,extended release 24 hr simvastatin 40 mg tablet 40 mg PO HS 01/27/21 02/21/24 cholecalciferol (vitamin D3) 125 125 mcg PO QAM 11/14/21 02/21/24 mcg (5,000 unit) tablet (Vitamin D3) insulin glargine U-300 conc 300 52 unit subcut PM 11/14/21 02/21/24 unit/mL (3 mL) subcutaneous pen (Toujeo Max U-300 SoloStar) famotidine 20 mg tablet 20 mg PO BID 11/20/21 02/21/24 amlodipine 2.5 mg tablet 2.5 mg PO DAILY 02/21/24 02/21/24 apixaban 2.5 mg tablet (Eliquis) 2.5 mg PO BID 02/21/24 02/21/24 dapagliflozin propanediol 10 mg 10 mg PO DAILY 02/21/24 02/21/24 tablet (Farxiga) potassium chloride 10 mEq 20 meq PO DAILY 02/21/24 02/21/24 capsule,extended release ranolazine 500 mg tablet,extended 500 mg PO BID 02/21/24 02/21/24 release,12 hr Previous Rx's Medication Instructions Recorded polyethylene glycol 3350 17 gram 17 g PO DAILY PRN constipation #5 11/25/21 oral powder packet (Miralax) ea Results & Data (ED) Vital Signs Vital Signs - 24 hr 02/21/24 16:53 02/21/24 18:09 02/21/24 18:09 Temperature 37.1 C Temperature Source Oral Pulse Rate 128 H 117 H Pulse Rate [Apical] 114 H Pulse Rate from SpO2 Sensor Respiratory Rate 20 19 19 Respiratory Effort / Characteristics Non-Labored Spontaneous Respiratory Depth Normal Respiratory Pattern Blood Pressure 117/67 Blood Pressure [Left Arm] 111/84 Blood Pressure Mean 83 Blood Pressure Mean [Left Arm] 93 Pulse Oximetry 95 92 94 Oxygen Delivery Method Room Air Room Air Room Air Sepsis Recent Fever Within 48 Hours No Sepsis New/Unexplained Change in Mental Status No Sepsis Action Taken by Nursing No Action Required 02/21/24 18:10 02/21/24 18:10 02/21/24 18:48 Temperature Temperature Source Pulse Rate 119 H Pulse Rate [Apical] Pulse Rate from SpO2 Sensor 126 H Respiratory Rate 10 L Respiratory Effort / Characteristics Non-Labored Respiratory Depth Normal Respiratory Pattern Regular Blood Pressure Blood Pressure [Left Arm] Blood Pressure Mean Blood Pressure Mean [Left Arm] Pulse Oximetry 95 Oxygen Delivery Method Room Air Room Air Sepsis Recent Fever Within 48 Hours Sepsis New/Unexplained Change in Mental Status Sepsis Action Taken by Nursing 02/21/24 18:51 02/21/24 18:59 02/21/24 18:59 Temperature Temperature Source Pulse Rate 112 H 115 H Pulse Rate [Apical] Pulse Rate from SpO2 Sensor 118 H Respiratory Rate 22 Respiratory Effort / Characteristics Respiratory Depth Respiratory Pattern Blood Pressure 104/69 104/69 Blood Pressure [Left Arm] Blood Pressure Mean 72 Blood Pressure Mean [Left Arm] Pulse Oximetry 93 Oxygen Delivery Method Sepsis Recent Fever Within 48 Hours Sepsis New/Unexplained Change in Mental Status Sepsis Action Taken by Nursing 02/21/24 19:03 02/21/24 19:15 02/21/24 19:38 Temperature Temperature Source Pulse Rate 107 H 108 H 108 H Pulse Rate [Apical] Pulse Rate from SpO2 Sensor 104 H 110 H Respiratory Rate 18 27 H Respiratory Effort / Characteristics Respiratory Depth Respiratory Pattern Blood Pressure 100/61 100/61 Blood Pressure [Left Arm] Blood Pressure Mean 74 Blood Pressure Mean [Left Arm] Pulse Oximetry 92 92 Oxygen Delivery Method Sepsis Recent Fever Within 48 Hours Sepsis New/Unexplained Change in Mental Status Sepsis Action Taken by Nursing 02/21/24 19:54 02/21/24 19:54 02/21/24 20:00 Temperature Temperature Source Pulse Rate 98 H 110 H Pulse Rate [Apical] 108 H Pulse Rate from SpO2 Sensor 111 H Respiratory Rate 24 20 Respiratory Effort / Characteristics Non-Labored Spontaneous Respiratory Depth Normal Respiratory Pattern Regular Blood Pressure Blood Pressure [Left Arm] Blood Pressure Mean Blood Pressure Mean [Left Arm] Pulse Oximetry 92 90 Oxygen Delivery Method Room Air Sepsis Recent Fever Within 48 Hours Sepsis New/Unexplained Change in Mental Status Sepsis Action Taken by Nursing 02/21/24 20:00 02/21/24 20:18 02/21/24 20:21 Temperature Temperature Source Pulse Rate 89 106 H 110 H Pulse Rate [Apical] Pulse Rate from SpO2 Sensor 99 H 106 H 111 H Respiratory Rate 23 24 21 Respiratory Effort / Characteristics Respiratory Depth Respiratory Pattern Blood Pressure Blood Pressure [Left Arm] Blood Pressure Mean Blood Pressure Mean [Left Arm] Pulse Oximetry 92 93 96 Oxygen Delivery Method Sepsis Recent Fever Within 48 Hours Sepsis New/Unexplained Change in Mental Status Sepsis Action Taken by Nursing 02/21/24 20:30 Temperature Temperature Source Pulse Rate 103 H Pulse Rate [Apical] Pulse Rate from SpO2 Sensor 114 H Respiratory Rate Respiratory Effort / Characteristics Respiratory Depth Respiratory Pattern Blood Pressure Blood Pressure [Left Arm] Blood Pressure Mean Blood Pressure Mean [Left Arm] Pulse Oximetry 95 Oxygen Delivery Method Sepsis Recent Fever Within 48 Hours Sepsis New/Unexplained Change in Mental Status Sepsis Action Taken by Nursing Laboratory Data 02/21/24 17:00 02/21/24 17:00 Lab Results 02/21/24 02/21/24 02/21/24 Range/Units 17:00 18:10 18:20 WBC 11.64 H (4.8-10.8) K/ul RBC 3.94 L (4.20-5.40) M/uL Hgb 12.0 (12.0-16.0) g/dl Hct 35.4 L (37.0-47.0) % MCV 89.8 (80.0-100.0) fL MCH 30.5 (25.0-34.0) pg MCHC 33.9 (32.0-36.0) g/dL RDW Std Deviation 45.6 (36.4-46.3) fL RDW Coeff of [place] 13.9 (11.5-14.5) % Plt Count 196 (130-400) K/uL MPV 11.0 (9.4-12.4) fL Immature Gran % (Auto) 0.8 % Neut % (Auto) 68.7 % Lymph % (Auto) 18.1 % [place] % (Auto) 11.2 % Eos % (Auto) 0.8 % Baso % (Auto) 0.4 % Neut # (Auto) 8.00 H (1.40-6.50) K/uL Lymph # (Auto) 2.11 (1.20-3.40) K/uL [place] # (Auto) 1.30 H (0.11-0.59) K/uL Eos # (Auto) 0.09 (0.00-0.50) K/uL Baso # (Auto) 0.05 (0.00-0.20) K/uL Immature Gran # (Auto) 0.09 (0.01-0.20) K/uL PT 12.8 H (9.0-12.0) Seconds INR 1.2 H (0.9-1.1) APTT 38 H (21-31) Seconds PTT Ratio 1.4 Sodium 134 L (136-145) mmol/L Potassium 3.9 (3.5-5.1) mmol/L Chloride 96 L (98-107) mmol/L Carbon Dioxide 28 (21-32) mmol/L Anion Gap 10 (3-11) BUN 27 H (6-23) mg/dl Creatinine 1.90 H (0.6-1.2) mg/dl Est Cr Clr Drug Dosing 15.5 ml/min Est GFR ( Amer) 27.6 ml/min Est GFR (Non-Af Amer) 23.8 ml/min BUN/Creatinine Ratio 14.2 (10-20) Glucose 245 H (70-99(Fasting)) mg/dl Lactate 1.2 (0.4-2.0) mmol/L Calcium 9.4 (8.6-10.3) mg/dl Magnesium 1.5 L (1.7-2.4) mg/dl Total Bilirubin 0.7 (0.2-1.0) mg/dl AST 18 (13-39) U/L ALT 16 (7-52) U/L Alkaline Phosphatase 109 H (34-104) U/L Troponin I High Sens 12.2 (0-14) pg/ml B-Natriuretic Peptide 229 H (0-100) pg/ml Total Protein 7.6 (6.0-8.3) gm/dl Albumin 3.5 (3.4-5.0) gm/dl Globulin 4.1 H (2.5-4.0) gm/dl Albumin/Globulin Ratio 0.9 (0.9-2) Procalcitonin 1.09 H (0-0.5) ng/ml Nasal Influ A H1 2008 PCR Cancelled Adenovirus (PCR) Not Detected Cancelled (NotDetected) B. pertussis DNA (PCR) Not Detected Cancelled (NotDetected) B.parapertussis DNA PCR Not Detected Cancelled (NotDetected) C. pneumoniae DNA (PCR) Not Detected Cancelled (NotDetected) Coronavirus OC43 (PCR) Not Detected Cancelled (NotDetected) Coronavirus HKU1 (PCR) Not Detected Cancelled (NotDetected) Coronavirus 229E (PCR) Not Detected Cancelled (NotDetected) SARS-CoV-2 (PCR) Not Detected Cancelled (NotDetected) Coronavirus NL63 (PCR) Not Detected Cancelled (NotDetected) Human Metapneumovir PCR Not Detected Cancelled (NotDetected) Influenza A (H1) PCR Cancelled Influenza A (H3) PCR Cancelled Influenza Type A (PCR) Not Detected Cancelled (NotDetected) Influenza A Untype (PCR) Cancelled Influenza Type B (PCR) Not Detected Cancelled (NotDetected) M. pneumoniae (PCR) Not Detected Cancelled (NotDetected) Parainfluenza 1 (PCR) Not Detected Cancelled (NotDetected) Parainfluenza 2 (PCR) Not Detected Cancelled (NotDetected) Parainfluenza 3 (PCR) Not Detected Cancelled (NotDetected) Parainfluenza 4 (PCR) Not Detected Cancelled (NotDetected) RSV (PCR) Not Detected Cancelled (NotDetected) Entero/Rhino (PCR) Not Detected Cancelled (NotDetected) Administered Medications Discontinued Medications Sodium Chloride (Nss) 250 mls @ 999 mls/hr IV .Q16M ONE Stop: 02/21/24 17:44 Last Infusion: 02/21/24 18:09 Dose: Infused Documented By: Admin: 02/21/24 17:35 Dose: 999 mls/hr Documented By: ROME Magnesium Sulfate/Dextrose (Magnesium Sulfate / D5w) 1 gm in 100 mls @ 200 mls/hr IV Q30M [facility] Stop: 02/21/24 18:29 Last Infusion: 02/21/24 21:15 Dose: Infused Documented By: Admin: 02/21/24 20:00 Dose: 200 mls/hr Documented By: Infusion: 02/21/24 19:25 Dose: Infused Documented By: Admin: 02/21/24 18:47 Dose: 200 mls/hr Documented By: DEBI Ceftriaxone Sodium (Rocephin) 2,000 mg in 50 mls @ 100 mls/hr IV NOW STA Stop: 02/21/24 19:20 Last Infusion: 02/21/24 20:37 Dose: Infused Documented By: Admin: 02/21/24 19:59 Dose: 100 mls/hr Documented By: PASTORA Metoprolol Tartrate (Metoprolol Tartrate 1 Mg/Ml Vial) 5 mg IV NOW STA Stop: 02/21/24 17:15 Last Admin: 02/21/24 17:48 Dose: Not Given Documented By: DEBI Metoprolol Tartrate (Metoprolol Tartrate 1 Mg/Ml Vial) 5 mg IV NOW STA Stop: 02/21/24 18:54 Last Admin: 02/21/24 18:59 Dose: 5 mg Documented By: DEBI Imaging Data Radiologist's Impression: Chest X-Ray 02/21/24 16:57 SINGLE VIEW CHEST CLINICAL HISTORY: Dyspnea FINDINGS: An AP, portable, upright chest radiograph is compared to study dated 02/06/2021. The heart is enlarged noting atherosclerotic calcification of the thoracic aorta. There is pulmonary vascular congestion. Bibasilar opacities are noted. No large pleural effusion or pneumothorax is seen. The bony thorax is grossly intact. Bilateral shoulder arthroplasties are in place. IMPRESSION: 1. Cardiomegaly with pulmonary vascular congestion. 2. Bibasilar opacities likely represent scarring/atelectasis. Correlate clinically for evidence of a superimposed infectious/inflammatory pneumonitis. Radiographic follow-up to resolution is recommended. ACT 112: Negative or not required by law. Electronically signed by: Jimi Fitzpatrick M.D. 02/21/2024 6:[address] 02/21/24 18:51 CT head/brain wo con CLINICAL HISTORY: dizzy, eliquis Technique: Contiguous axial CT images of the head were acquired from the base of the skull to the vertex without intravenous contrast administration. Images were viewed in brain, subdural and bone windows. Automated dose lowering techniques and/or adjustment according to patient size were utilized for this exam. Comparison: None available at the time of this dictation. Findings: The ventricles, basal cisterns, and cerebral sulci are normal. There is no acute intracranial hemorrhage or evidence of acute territorial infarction. Neither mass effect, shift of the midline structures, nor abnormal extra-axial fluid collections are shown. Ethmoid air cell thickening is seen. Bilateral maxillary sinus disease is seen. The orbits appear normal. There are no acute fractures of the calvaria or scalp swelling. Impression: No acute intracranial hemorrhage, no evidence of acute territorial infarction or other acute intracranial disease process. ACT 112: Negative or not required by law. Electronically signed by: Preet Hassan M.D. 02/21/2024 9:40 PM Discharge Plan Visit Data Chief Complaint: Shortness of Breath/Dyspnea Stated Complaint: POSSIBLE PNEUMONIA, ILLNESS ED Provider: Mike Moon Discharge Problem: Atrial fibrillation with rapid ventricular response, Pneumonia, Weakness Discharge Instructions Interventions: ED Discharge Assessment Last Done: 02/21/24 23:43
[2024-02-21] MEDS: MAGNESIUM SULFATE / D5W 1 GM/100 ML BAG IV SCH (18:47)
[2024-02-21] MEDS: cefTRIAXone SODIUM 2,000 MG/50 ML BAG IV STA (19:59)
--- NOTE | 2024-02-21 20:44 | History & Physical Report ---
Date of Service February 21, 2024 Assessment & Plan (1) Pneumonia: Plan: Patient with recent URI symptoms now with sweats, weakness and fatigue. She has mild leukocytosis and elevation of procalcitonin. CXR as above with bibasilar opacities, possible PNA/pneumonitis. Viral panel is NEGATIVE. Patient with no history of smoking, second hand smoke exposure or pulmonary disease -Admit to medical with telemetry -Follow cultures sent from ER -Ceftriaxone -Azithromycin -Flutter valve -Incentive spirometer -Mucinex BID (2) Weakness: Plan: Likely secondary to underlying infection - Pneumonia -Treatment for pneumonia with Ceftriaxone, Azithromycin and supportive care -Gentle IVF -PT/OT evaluation (3) Atrial fibrillation with rapid ventricular response: Plan: Patient reports she has never been told that she has atrial fibrillation. She was started on Eliquis fairly recently - she states due to a blocked artery in her heart. She does follow with Cardiology. HR improved after IV Metoprolol -Request Cardiology records -Continue Metoprolol -Continue Eliquis -Telemetry monitoring -Check 2D echo (4) Diabetes mellitus, type 2: Plan: Patient with DM - last HgbA1C from 11/2021 = 8.1 -Lantus 20u BID -ISS -Goal blood sugar 110 - 140 -Check Hgb A1C Plan CHRONIC MEDICAL PROBLEMS: CAD - patient reports history of CAD. No prior MIs or stents. She follows with Cardiology in [place] (?[facility] - [facility] She reports a blocked artery in her heart but other blood vessels that are open. She denies exertional symptoms. Reports that she is on the Eliquis for this reason. -Continue Simvastatin 40mg po qHS -Continue Ranolazine 500mg po BID -Continue Metoprolol 100mg po qPM -Continue Losartan 100mg po qHS Hypothyroidism - chronic, stable -Continue Synthroid 100mcg po daily Hypertension -Continue Metoprolol, Losartan, Amlodipine Gout - -Continue Allopurinol History of Present Illness Chief Complaint: generalized weakness Primary Care Provider: Ryder Rollins PA-C Edie Villarreal is an 83yo female with histoyr of DM, HTN, HLP, CAD, CKD, Gout and GERD presenting with generalized weakness and fatigue. Patient reports having a head cold which started on 02/16/24 - congestion, cough productive for thick, green sputum. She has had progressive fatigue, weakness an dizziness over the last several days with near syncopal events. She has also been having sweat, decreased appetite and poor oral intake. She overall feels that the cough is improving. She denies fever, chest pain, palpitations, abdominal pain, nausea, vomiting, diarrhea. She has chronic BENITEZ but denies worsening. No pleuritic pain. No edema or orthopnea. In the ER she is afebrile, atrial fibrillation with RVR initially with rate of 139 ER Course: Ceftriaxone Metoprolol 5mg IV x 2 doses NSS x 250mL Mg x 1gm Allergies Allergy/AdvReac Type Severity Reaction Status Date / Time Penicillins Allergy Intermediate Hives Verified 02/21/24 17:59 oxycodone [From OxyContin] AdvReac Intermediate N/V Verified 02/21/24 17:59 naproxen AdvReac Mild Nausea Verified 02/21/24 17:59 Home Medications Medication Instructions Recorded Confirmed Type allopurinol 100 mg tablet 100 mg PO QPM 01/27/21 02/21/24 History alprazolam 0.25 mg tablet 0.25 - 0.5 mg PO BID PRN Anxiety 01/27/21 02/21/24 History cyanocobalamin (vitamin B-12) 5,000 mcg PO QAM 01/27/21 02/21/24 History 5,000 mcg capsule doxazosin 1 mg tablet 1 mg PO HS 01/27/21 02/21/24 History gabapentin 300 mg capsule 300 mg PO BID 01/27/21 02/21/24 History insulin aspart U-100 100 unit/mL 8 unit subcut TIDM 01/27/21 02/21/24 History subcutaneous solution (Novolog U-100 Insulin aspart) levothyroxine 100 mcg capsule 100 mcg PO QAM 01/27/21 02/21/24 History losartan 100 mg tablet 100 mg PO HS 01/27/21 02/21/24 History magnesium 250 mg tablet 500 mg PO QAM 01/27/21 02/21/24 History metoprolol succinate 100 mg 100 mg PO PM 01/27/21 02/21/24 History tablet,extended release 24 hr simvastatin 40 mg tablet 40 mg PO HS 01/27/21 02/21/24 History cholecalciferol (vitamin D3) 125 125 mcg PO QAM 11/14/21 02/21/24 History mcg (5,000 unit) tablet (Vitamin D3) insulin glargine U-300 conc 300 52 unit subcut PM 11/14/21 02/21/24 History unit/mL (3 mL) subcutaneous pen (Toujeo Max U-300 SoloStar) famotidine 20 mg tablet 20 mg PO BID 11/20/21 02/21/24 History polyethylene glycol 3350 17 gram 17 g PO DAILY PRN constipation #5 11/25/21 02/21/24 Rx oral powder packet (Miralax) ea amlodipine 2.5 mg tablet 2.5 mg PO DAILY 02/21/24 02/21/24 History apixaban 2.5 mg tablet (Eliquis) 2.5 mg PO BID 02/21/24 02/21/24 History dapagliflozin propanediol 10 mg 10 mg PO DAILY 02/21/24 02/21/24 History tablet (Farxiga) potassium chloride 10 mEq 20 meq PO DAILY 02/21/24 02/21/24 History capsule,extended release ranolazine 500 mg tablet,extended 500 mg PO BID 02/21/24 02/21/24 History release,12 hr Past Med/Surg History Problem List Weakness (Acute) Pneumonia (Acute) Atrial fibrillation with rapid ventricular response (Acute) Acute blood loss anemia Hypothyroidism Hypertension Hyperlipidemia Gout GERD (gastroesophageal reflux disease) Controlled Diabetes mellitus, type 2 IDDM Chronic kidney disease Follows with Dr. 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 Medically managed Instability of knee joint Encounter for pre-operative examination Medical History Anemia Chronic, baseline hgb 10-11 range History of claustrophobia Surgical History History of cardiac cath 2019> no stents History of cholecystectomy History of hysterectomy Total History of total shoulder replacement R/L History of total knee replacement R/L History of colonoscopy 2019 Family History Mother Family history of diabetes mellitus Social History Smoking Status: Never smoker Second Hand Exposure: No; Do You Dip or Chew Tobacco: No; Hx Alcohol Use: Yes Alcohol type: beer Hx Substance Use: No Preferred Language: Martiniquais Communication Ability: Effective Policy And Planning Manager Required: No Beliefs That Will Affect Care: None Current Living Situation: Spouse Feels Safe at Home: Yes Assistive Devices: Walker Review of Systems Review of Systems: All systems reviewed & are unremarkable except as noted in HPI & below Physical Exam Physical Exam: General: patient resting comfortably, NAD, non-toxic in appearance, AA&O x 4 Skin: warm, dry, intact, no rashes or lesions HEENT: NC/AT, PERRL, EOMI, anicteric sclera, conjunctiva without injection, external ear normal to inspection and nontender, nares patent, moist mucus membranes, dentition intact, no oropharyngeal lesions, neck supple, trachea midline, no LAD, no thyromegaly, no JVD Heart: +S1/S2, irregularly irregular, no m/r/g Lungs: equal air entry bilaterally, coarse breath sounds with end-expiratory wheezing R>L Abd: +BS, soft, NT/ND, no masses/organomegaly/ascites Ext: warm, 2+ pulses in UE/LE bilaterally, no clubbing/cyanosis or edema Neuro: nonfocal, patient AA&O x 4, speech intact, no facial droop, moving all extremities on command with equal strength 5/5 Results & Data Results & Data Vital Signs (Past 12 Hours) Vital Signs Temp Pulse Pulse Resp BP BP Pulse Ox 02/21/24 20:00 108 H 20 90 02/21/24 19:54 98 H 02/21/24 19:38 108 H 100/61 02/21/24 19:15 108 H 27 H 100/61 92 02/21/24 19:03 107 H 18 92 02/21/24 18:59 104/69 02/21/24 18:59 115 H 104/69 02/21/24 18:51 112 H 22 93 02/21/24 18:48 119 H 10 L 95 02/21/24 18:10 02/21/24 18:10 02/21/24 18:09 114 H 19 111/84 94 02/21/24 18:09 117 H 19 92 02/21/24 16:53 37.1 C 128 H 20 117/67 95 O2 Del Method 02/21/24 20:00 Room Air 02/21/24 19:54 02/21/24 19:38 02/21/24 19:15 02/21/24 19:03 02/21/24 18:59 02/21/24 18:59 02/21/24 18:51 02/21/24 18:48 02/21/24 18:10 Room Air 02/21/24 18:10 Room Air 02/21/24 18:09 Room Air 02/21/24 18:09 Room Air 02/21/24 16:53 Room Air Laboratory Results Laboratory Results WBC 11.64 K/ul (4.8-10.8) H 02/21/24 17:00 RBC 3.94 M/uL (4.20-5.40) L 02/21/24 17:00 Hgb 12.0 g/dl (12.0-16.0) 02/21/24 17:00 Hct 35.4 % (37.0-47.0) L 02/21/24 17:00 MCV 89.8 fL (80.0-100.0) 02/21/24 17:00 MCH 30.5 pg (25.0-34.0) 02/21/24 17:00 MCHC 33.9 g/dL (32.0-36.0) 02/21/24 17:00 RDW Std Deviation 45.6 fL (36.4-46.3) 02/21/24 17:00 RDW Coeff of Titus 13.9 % (11.5-14.5) 02/21/24 17:00 Plt Count 196 K/uL (130-400) 02/21/24 17:00 MPV 11.0 fL (9.4-12.4) 02/21/24 17:00 Immature Gran % (Auto) 0.8 % 02/21/24 17:00 Neut % (Auto) 68.7 % 02/21/24 17:00 Lymph % (Auto) 18.1 % 02/21/24 17:00 [place] % (Auto) 11.2 % 02/21/24 17:00 Eos % (Auto) 0.8 % 02/21/24 17:00 Baso % (Auto) 0.4 % 02/21/24 17:00 Neut # (Auto) 8.00 K/uL (1.40-6.50) H 02/21/24 17:00 Lymph # (Auto) 2.11 K/uL (1.20-3.40) 02/21/24 17:00 [place] # (Auto) 1.30 K/uL (0.11-0.59) H 02/21/24 17:00 Eos # (Auto) 0.09 K/uL (0.00-0.50) 02/21/24 17:00 Baso # (Auto) 0.05 K/uL (0.00-0.20) 02/21/24 17:00 Immature Gran # (Auto) 0.09 K/uL (0.01-0.20) 02/21/24 17:00 PT 12.8 Seconds (9.0-12.0) H 02/21/24 17:00 INR 1.2 (0.9-1.1) H 02/21/24 17:00 APTT 38 Seconds (21-31) H 02/21/24 17:00 PTT Ratio 1.4 02/21/24 17:00 Sodium 134 mmol/L (136-145) L 02/21/24 17:00 Potassium 3.9 mmol/L (3.5-5.1) 02/21/24 17:00 Chloride 96 mmol/L (98-107) L 02/21/24 17:00 Carbon Dioxide 28 mmol/L (21-32) 02/21/24 17:00 Anion Gap 10 (3-11) 02/21/24 17:00 BUN 27 mg/dl (6-23) H 02/21/24 17:00 Creatinine 1.90 mg/dl (0.6-1.2) H 02/21/24 17:00 Est Cr Clr Drug Dosing 15.5 ml/min 02/21/24 17:00 Est GFR ( Amer) 27.6 ml/min 02/21/24 17:00 Est GFR (Non-Af Amer) 23.8 ml/min 02/21/24 17:00 BUN/Creatinine Ratio 14.2 (10-20) 02/21/24 17:00 Glucose 245 mg/dl (70-99(Fasting)) H 02/21/24 17:00 Lactate 1.2 mmol/L (0.4-2.0) 02/21/24 18:20 Calcium 9.4 mg/dl (8.6-10.3) 02/21/24 17:00 Magnesium 1.5 mg/dl (1.7-2.4) L 02/21/24 17:00 Total Bilirubin 0.7 mg/dl (0.2-1.0) 02/21/24 17:00 AST 18 U/L (13-39) 02/21/24 17:00 ALT 16 U/L (7-52) 02/21/24 17:00 Alkaline Phosphatase 109 U/L (34-104) H 02/21/24 17:00 Troponin I High Sens 12.2 pg/ml (0-14) 02/21/24 17:00 B-Natriuretic Peptide 229 pg/ml (0-100) H 02/21/24 17:00 Total Protein 7.6 gm/dl (6.0-8.3) 02/21/24 17:00 Albumin 3.5 gm/dl (3.4-5.0) 02/21/24 17:00 Globulin 4.1 gm/dl (2.5-4.0) H 02/21/24 17:00 Albumin/Globulin Ratio 0.9 (0.9-2) 02/21/24 17:00 Procalcitonin 1.09 ng/ml (0-0.5) H 02/21/24 17:00 Nasal Influ A H1 2008 PCR Cancelled 02/21/24 18:10 Adenovirus (PCR) Cancelled 02/21/24 18:10 B. pertussis DNA (PCR) Cancelled 02/21/24 18:10 B.parapertussis DNA PCR Cancelled 02/21/24 18:10 C. pneumoniae DNA (PCR) Cancelled 02/21/24 18:10 Coronavirus OC43 (PCR) Cancelled 02/21/24 18:10 Coronavirus HKU1 (PCR) Cancelled 02/21/24 18:10 Coronavirus 229E (PCR) Cancelled 02/21/24 18:10 SARS-CoV-2 (PCR) Cancelled 02/21/24 18:10 Coronavirus NL63 (PCR) Cancelled 02/21/24 18:10 Human Metapneumovir PCR Cancelled 02/21/24 18:10 Influenza A (H1) PCR Cancelled 02/21/24 18:10 Influenza A (H3) PCR Cancelled 02/21/24 18:10 Influenza Type A (PCR) Cancelled 02/21/24 18:10 Influenza A Untype (PCR) Cancelled 02/21/24 18:10 Influenza Type B (PCR) Cancelled 02/21/24 18:10 M. pneumoniae (PCR) Cancelled 02/21/24 18:10 Parainfluenza 1 (PCR) Cancelled 02/21/24 18:10 Parainfluenza 2 (PCR) Cancelled 02/21/24 18:10 Parainfluenza 3 (PCR) Cancelled 02/21/24 18:10 Parainfluenza 4 (PCR) Cancelled 02/21/24 18:10 RSV (PCR) Cancelled 02/21/24 18:10 Entero/Rhino (PCR) Cancelled 02/21/24 18:10 Impressions Chest X-Ray 02/21/24 16:57 SINGLE VIEW CHEST CLINICAL HISTORY: Dyspnea FINDINGS: An AP, portable, upright chest radiograph is compared to study dated 02/06/2021. The heart is enlarged noting atherosclerotic calcification of the thor acic aorta. There is pulmonary vascular congestion. Bibasilar opacities are noted. No large pleural effusion or pneumothorax is seen. The bony thorax is grossly intact. Bilateral shoulder arthroplasties are in place. IMPRESSION: 1. Cardiomegaly with pulmonary vascular congestion. 2. Bibasilar opacities likely represent scarring/atelectasis. Correlate clinically for evidence of a superimposed infectious/inflammatory pneumonitis. Radiographic follow-up to resolution is recommended. ACT 112: Negative or not required by law. Electronically signed by: Jimi Fitzpatrick M.D. 02/21/2024 6:[address] 02/21/24 18:51 CT head/brain wo con CLINICAL HISTORY: shelia eliqurickey Technique: Contiguous axial CT images of the head were acquired from the base of the skull to the vertex without intravenous contrast administration. Images were viewed in brain, subdural and bone windows. Automated dose lowering techniques and/or adjustment according to patient size were utilized for this exam. Comparison: None available at the time of this dictation. Findings: The ventricles, basal cisterns, and cerebral sulci are normal. There is no acute intracranial hemorrhage or evidence of acute territorial infarction. Neither mass effect, shift of the midline structures, nor abnormal extra-axial fluid collections are shown. Ethmoid air cell thickening is seen. Bilateral maxillary sinus disease is seen. The orbits appear normal. There are no acute fractures of the calvaria or scalp swelling. Impression: No acute intracranial hemorrhage, no evidence of acute territorial infarction or other acute intracranial disease process. ACT 112: Negative or not required by law. Electronically signed by: Preet Hassan M.D. 02/21/2024 9:40 PM ECG Additional Comments: EKG with AF at 139bpm, non-specific ST wave changes PG Care Time/CCT Total # of Minutes Spent Total Time Spent with Patient: Total time spent is greater than 50% in coordination of care (as documented) at patient's floor/unit and/or counseling patient: Coding Level of Care Code 59103 INT INP/OBS CARE 3/75MIN Diagnoses Pneumonia J18.9 Weakness R53.1 Atrial fibrillation with rapid ventricular response I48.91 Diabetes mellitus, type 2 E11.9
--- NOTE | 2024-02-21 21:42 | CT Scan Report ---
CT head/brain wo con CLINICAL HISTORY: dizzy, eliquis Technique: Contiguous axial CT images of the head were acquired from the base of the skull to the w[place]o [place] without intravenous contrast administration. Images were viewed in brain, subdural and bone [facility]. Automated dose lowering techniques and/or adjustment according to patient size were utilized for this exam. Comparison: None available at the time of this dictation. Findings: The ventricles, basal cisterns, and cerebral sulci are normal. There is no acute intracranial hemorrh age or evidence of acute territorial infarction. Neither mass effect, shift of the midline structures , nor abnormal extra-axial fluid collections are shown. Ethmoid air cell thickening is seen. Bilateral maxillary sinus disease is seen. The orbits appear nor mal. There are no acute fractures of the calvaria or scalp swelling. Impression: No acute intracranial hemorrhage, no evidence of acute territorial infarction or other acute intracra nial disease process. ACT 112: Negative or not required by law. Electronically signed by: Preet Hassan M.D. 02/21/2024 9:40 PM
[2024-02-21] MEDS ORDERED: GLUCOSE 40% GEL 15 GM TUBE PO PRN (23:42)
[2024-02-21] MEDS ORDERED: ALPRAZolam 0.25 MG TABLET PO PRN (23:42)
[2024-02-21] MEDS ORDERED: CARBOHYDRATES FOR HYPOGLYCEMIA PO PRN (23:42)
[2024-02-21] MEDS ORDERED: POLYETHYLENE (MIRALAX) 17 GM PACK PO PRN (23:42)
[2024-02-21] MEDS ORDERED: GLUCAGON FOR INJ 1 MG VIAL SQ PRN (23:42)
[2024-02-21] MEDS ORDERED: ONDANSETRON INJ 2 MG/ML 2 ML VIAL IV PRN (23:42)
[2024-02-21] MEDS ORDERED: DEXTROSE 50% 50 ML SYRINGE IV PRN (23:42)
[2024-02-21] MEDS ORDERED: ACETAMINOPHEN 325 MG TAB PO PRN (23:42)
[2024-02-21] MEDS ORDERED: ALBUTEROL 0.083% NEBU SOLN 3 ML VIAL NEB PRN (23:42)
[2024-02-21] MEDS ORDERED: GLUCOSE 10 TAB/TUBE PO PRN (23:42)
[2024-02-22] MEDS: RANOLAZINE 500 MG ER TAB PO SCH (00:44)
[2024-02-22] MEDS: FAMOTIDINE 20 MG TAB PO SCH (00:44)
[2024-02-22] MEDS: GABAPENTIN 300 MG CAP PO SCH (00:44)
[2024-02-22] MEDS: guaiFENesin 600 MG TABCR PO SCH (00:45)
[2024-02-22] MEDS: DOXAZOSIN MESYLATE 1 MG TAB PO SCH (00:45)
[2024-02-22] MEDS: allopurinoL 100 MG TAB PO SCH (00:45)
[2024-02-22] MEDS: SIMVASTATIN 40 MG TAB PO SCH (00:45)
[2024-02-22] MEDS: APIXABAN 2.5 MG TAB PO SCH (00:45)
[2024-02-22] MEDS: AZITHROMYCIN 500 MG in DEXTROSE 5% 250 ML IV STA (00:46)
[2024-02-22] MEDS: INSULIN ASPART PER UNIT CHARGE SC SCH (00:46)
[2024-02-22] MEDS: LANTUS PER UNIT CHARGE SQ SCH (00:46)
[2024-02-22] MEDS: METOPROLOL SUCC 50MG EXT REL TAB PO STA (01:43)
[2024-02-22] MEDS: LEVOTHYROXINE SODIUM 100 MCG TABLET PO SCH (05:52)
[2024-02-22 07:35] LABS: Hematocrit (blood only) 31.2 % (37.0-47.0); Hemoglobin 10.5 g/dl (12.0-16.0); Mean Corpuscular Hemoglobin 30.2 pg (25.0-34.0); Mean Corpuscular Hgb Conc 33.7 g/dL (32.0-36.0); Mean Corpuscular Volume 89.7 fL (80.0-100.0); Mean Platelet Volume 11.6 fL (9.4-12.4); Platelet Count 201 K/uL (130-400); RDW Coefficient of Variation 13.6 % (11.5-14.5); RDW Standard Deviation 44.9 fL (36.4-46.3); Red Blood Count 3.48 M/uL (4.20-5.40); White Blood Count 10.37 K/ul (4.8-10.8)
[2024-02-22 07:58] LABS: BUN Creatinine Ratio 16.3 (10-20); Creatinine Clr Calc Pharmacy 18.2 ml/min; Est GFR (African American) 33.9 ml/min; Est GFR (Non-African American) 29.3 ml/min; Phosphorus 2.9 mg/dl (2.5-4.9); Potassium 3.6 mmol/L (3.5-5.1)
[2024-02-22 08:02] LABS: INR 1.1 (0.9-1.1); Prothrombin Time 12.2 Seconds (9.0-12.0)
[2024-02-22 08:04] LABS: Estimated Average Glucose 192 mg/dl; Hemoglobin A1C 8.3 % (4.5-5.6)
[2024-02-22] MEDS: amLODIPine BESYLATE 5 MG TAB PO SCH (08:41)
--- NOTE | 2024-02-22 12:37 | Electrocardiogram Report ---
Test Reason : Blood Pressure : / mmHG Vent. Rate : 139 BPM Atrial Rate : 000 BPM P-R Int : 000 ms QRS Dur : 088 ms QT Int : 296 ms P-R-T Axes : 000 -35 113 degrees QTc Int : 450 ms Atrial fibrillation with rapid ventricular response Left axis deviation Minimal voltage criteria for LVH, may be normal variant ( R in aVL ) Poor R wave progression, consider anterior NM vs. lead placement vs. LVH Abnormal ECG When compared with ECG of 14-NOV-2021 12:36, Atrial fibrillation has replaced Sinus rhythm Vent. rate has increased BY 65 BPM Nonspecific T wave abnormality now evident in Lateral leads Confirmed by Samm Fritz ([id number]) on 02/22/2024 12:37:12 PM Referred By: REFERRED SELF Confirmed By:Samm Fritz
--- NOTE | 2024-02-22 15:09 | XCELERA ---
[id number]
--- NOTE | 2024-02-22 17:39 | Hospitalist Progress Note ---
Date of Service February 22, 2024 Assessment & Plan (1) Pneumonia: Plan: Patient with recent URI symptoms now with sweats, weakness and fatigue. She has mild leukocytosis and elevation of procalcitonin. CXR as above with bibasilar opacities, possible PNA/pneumonitis. Viral panel is NEGATIVE. Patient with no history of smoking, second hand smoke exposure or pulmonary disease Improving already with less cough, improved strength. Occasional mild hypoxia now on room air Continue Ceftriaxone and Azithromycin Continue Flutter valve, Incentive spirometer Continue Mucinex BID Follow blood cxs Check SPutum cx O2 supplemental as needed (2) Atrial fibrillation with rapid ventricular response: Plan: Patient reports she has never been told that she has atrial fibrillation. She was started on Eliquis fairly recently - she states due to a blocked artery in her heart. She does follow with Cardiology and those records have been requested from [facility] HR improved after IV Metoprolol initially but ongoing rates 100-120s ECHO here preserved EF, no evidence of heart failure Increase home Metoprolol succ to 125mg po hs Continue Eliquis COntinue Telemetry monitoring IV lopressor prn (3) Hypertension: Plan: Hypertension-BPs low today-HOLD amlodipine -Continue Metoprolol and increase dose, continue Losartan (4) Weakness: Plan: Likely secondary to underlying infection - Pneumonia. Improving already COntinue treatment for pneumonia and gave gentle IVFs PT/OT evaluation (5) Diabetes mellitus, type 2: Plan: Patient with DM - last HgbA1C from 11/2021 = 8.1 Continue Lantus 25u BID, ISS Hgb A1C Plan CHRONIC MEDICAL PROBLEMS: CAD - patient reports history of CAD. No prior MIs or stents. She follows with Cardiology in [place] (?[facility] - [facility] She reports a blocked artery in her heart but other blood vessels that are open. She denies exertional symptoms. Reports that she is on the Eliquis for this reason. -Continue Simvastatin 40mg po qHS -Continue Ranolazine 500mg po BID -Continue Metoprolol -Continue Losartan 100mg po qHS Hypothyroidism - chronic, stable -Continue Synthroid 100mcg po daily Gout - -Continue Allopurinol DVT proph-Eliquis Dispo-continued stay. WIll call with update Admission and Anticipated Discharge Date Admission Date: February 21, 2024 Subjective Pt feeling better today. Is coughing up green sputum. Feels stronger today. Had loose stool this AM x 1. Did have a brief episode of confusion today as per RN when pt started yelling at her grandson who wasn't actually in the room. Tele with Afib, rates 100s-120s Physical Exam Constitutional: WD/WN, vitals as above Respiratory: normal respiratory effort and + cough Auscultation: + crackles (bases); no rhonchi and no wheezes Cardiovascular: Rate/Rhythm: + tachycardic and + irregularly irregular Heart Sounds: no murmur Extremities: no edema Psychiatric: Orientation: alert, oriented to person, oriented to place and cooperative Results & Data Results & Data Vital Signs (Past 12 Hours) Vital Signs Temp Pulse Pulse Resp BP BP Pulse Ox 02/22/24 14:38 37.0 C 97 H 18 122/68 93 02/22/24 14:01 102 H 02/22/24 10:59 36.7 C 101 H 18 108/69 96 02/22/24 07:31 02/22/24 07:25 92 02/22/24 07:24 99/65 L 89 L 02/22/24 07:00 112 H 02/22/24 07:00 37.1 C 108 H 18 96/60 L 89 L O2 Del Method O2 Flow Rate 02/22/24 14:38 Room Air 02/22/24 14:01 02/22/24 10:59 Nasal Cannula 2 02/22/24 07:31 Nasal Cannula 2 02/22/24 07:25 Nasal Cannula 2 02/22/24 07:24 Room Air 02/22/24 07:00 02/22/24 07:00 Room Air Laboratory Results CBC, BMP reviewed PG Care Time/CCT Total # of Minutes Spent Total Time Spent with Patient: Total time spent is greater than 50% in coordination of care (as documented) at patient's floor/unit and/or counseling patient: Coding Level of Care Code 06434 SUB INP/OBS CARE 2/35MIN Diagnoses Pneumonia J18.9 Atrial fibrillation with rapid ventricular response I48.91 Hypertension I10 Weakness R53.1 Diabetes mellitus, type 2 E11.9
[2024-02-22] MEDS: cefTRIAXone SODIUM 2,000 MG/50 ML BAG IV SCH (20:45)
[2024-02-22] MEDS: LOSARTAN POTASSIUM 50 MG TAB PO SCH (20:46)
[2024-02-22] MEDS: METOPROLOL SUCC 50MG EXT REL TAB PO SCH (20:47)
[2024-02-22] MEDS ORDERED: METOPROLOL SUCC 50MG EXT REL TAB PO SCH (21:00)
[2024-02-22] MEDS: METOPROLOL SUCC 25MG EXT REL TAB PO SCH (21:11)
[2024-02-22] MEDS: AZITHROMYCIN 250 MG in DEXTROSE 5% 250 ML IV SCH (23:34)
[2024-02-23 07:22] LABS: Basophils # (auto) 0.04 K/uL (0.00-0.20); Basophils % (auto) 0.3 %; Eosinophils # (auto) 0.29 K/uL (0.00-0.50); Eosinophils % (auto) 2.5 %; Hematocrit (blood only) 34.2 % (37.0-47.0); Hemoglobin 11.2 g/dl (12.0-16.0); Immature Granulocytes # (auto) 0.13 K/uL (0.01-0.20); Immature Granulocytes % (auto) 1.1 %; Lymphocytes # (auto) 1.65 K/uL (1.20-3.40); Lymphocytes % (auto) 14.2 %; Mean Corpuscular Hemoglobin 29.6 pg (25.0-34.0); Mean Corpuscular Hgb Conc 32.7 g/dL (32.0-36.0); Mean Corpuscular Volume 90.5 fL (80.0-100.0); Mean Platelet Volume 11.3 fL (9.4-12.4); Monocytes # (auto) 0.89 K/uL (0.11-0.59); Monocytes % (auto) 7.6 %; Neutrophils # (auto) 8.65 K/uL (1.40-6.50); Neutrophils % (auto) 74.3 %; Platelet Count 218 K/uL (130-400); RDW Coefficient of Variation 13.6 % (11.5-14.5); RDW Standard Deviation 45.2 fL (36.4-46.3); Red Blood Count 3.78 M/uL (4.20-5.40); White Blood Count 11.65 K/ul (4.8-10.8)
[2024-02-23 07:50] LABS: BUN Creatinine Ratio 19.6 (10-20); C Reactive Protein 22.69 mg/dl (0-0.5); Calcium 9.2 mg/dl (8.6-10.3); Creatinine Clr Calc Pharmacy 17.9 ml/min; Est GFR (African American) 33.2 ml/min; Est GFR (Non-African American) 28.6 ml/min; Magnesium 1.8 mg/dl (1.7-2.4)
[2024-02-23] MEDS ORDERED: SODIUM CHLORIDE 0.65% NA SOLN 45 ML (OCEAN) PRN (17:43)
--- NOTE | 2024-02-23 17:46 | Hospitalist Progress Note ---
Date of Service February 23, 2024 Assessment & Plan (1) Pneumonia: Plan: Patient with recent URI symptoms now with sweats, weakness and fatigue. She has mild leukocytosis and elevation of procalcitonin and CRP. CXR as above with bibasilar opacities, possible PNA/pneumonitis. Viral panel is NEGATIVE. Patient with no history of smoking, second hand smoke exposure or pulmonary disease Improving with less cough, improved strength. Occasional mild hypoxia now on room air Sputum culture collected and pending Continue Ceftriaxone and Azithromycin Continue Flutter valve, Incentive spirometer Continue Mucinex BID Follow blood cxs and SPutum cx O2 supplemental as needed-will need two step prior to discharge (2) Atrial fibrillation with rapid ventricular response: Plan: Patient reports she has never been told that she has atrial fibrillation, but her knows that she is on metoprolol and Eliquis. She was started on Eliquis fairly recently - she states due to a blocked artery in her heart. She does follow with Cardiology and those records have been requested from [facility] HR improved after increasing oral metoprolol to 125 mg at bedtime-rates now in the 80s to low 100s ECHO here preserved EF, no evidence of heart failure Continue metoprolol succ 125mg po hs Continue Eliquis Continue Telemetry monitoring IV lopressor prn (3) Hypertension: Plan: Hypertension-BPs have been soft and her amlodipine has been on hold-may be able to discontinue Continue Metoprolol at increased dose, continue Losartan (4) Weakness: Plan: Likely secondary to underlying infection - Pneumonia. Improving already COntinue treatment for pneumonia and gave gentle IVFs PT/OT evaluation appreciated-recommend return home with home health (5) Diabetes mellitus, type 2: Plan: Patient with DM - last HgbA1C from 11/2021 = 8.1 Continue Lantus 25u BID, ISS Hgb A1C Plan CHRONIC MEDICAL PROBLEMS: CAD - patient reports history of CAD. No prior MIs or stents. She follows with Cardiology in [place] (?[facility] She reports a blocked artery in her heart but other blood vessels that are open. She denies exertional symptoms. Reports that she is on the Eliquis for this reason. -Continue Simvastatin 40mg po qHS -Continue Ranolazine 500mg po BID -Continue Metoprolol -Continue Losartan 100mg po qHS Hypothyroidism - chronic, stable -Continue Synthroid 100mcg po daily Gout - -Continue Allopurinol CKD stage IV-creatinine stable at baseline at 1.6 Renally dose medications and avoid nephrotoxins Follow BMP DVT proph-Eliquis Dispo-continued stay. \Gave and updated the bedside Admission and Anticipated Discharge Date Admission Date: February 21, 2024 Subjective Patient anxious to go home but still coughing up sputum and a bit confused at times as per nursing. The reports that the patient does not remember seeing a doctor yesterday. She also tries to handing the phone when I asked to turn down her television when I came in the room. She is complaining of nasal congestion and decreased hearing in the right ear Telemetry with atrial fibrillation with rates in the 80s to low 100s Physical Exam Constitutional: WD/WN, vitals as above Respiratory: normal respiratory effort and + cough Auscultation: + crackles (bases); no rhonchi and no wheezes Cardiovascular: Rate/Rhythm: + tachycardic (Mild) and + irregularly irregular Heart Sounds: no murmur Extremities: no edema Psychiatric: Orientation: alert, oriented to person, oriented to place and cooperative Results & Data Results & Data Vital Signs (Past 12 Hours) Vital Signs Temp Pulse Pulse Resp BP BP Pulse Ox 02/23/24 15:42 36.7 C 105 H 18 101/70 91 02/23/24 13:58 91 H 02/23/24 11:01 36.5 C 92 H 18 110/69 95 02/23/24 08:30 02/23/24 07:26 36.7 C 117 H 18 107/69 93 02/23/24 07:00 108 H O2 Del Method 02/23/24 15:42 Room Air 02/23/24 13:58 02/23/24 11:01 Room Air 02/23/24 08:30 Room Air 02/23/24 07:26 Room Air 02/23/24 07:00 Laboratory Results CBC, BMP, magnesium, CRP, procalcitonin reviewed PG Care Time/CCT Total # of Minutes Spent Total Time Spent with Patient: Total time spent is greater than 50% in coordination of care (as documented) at patient's floor/unit and/or counseling patient: Coding Level of Care Code 52638 SUB INP/OBS CARE 2/35MIN Diagnoses Pneumonia J18.9 Atrial fibrillation with rapid ventricular response I48.91 Hypertension I10 Weakness R53.1 Diabetes mellitus, type 2 E11.9
[2024-02-24] MEDS: BENZONATATE 100 MG CAPSULE PO PRN (02:37)
[2024-02-24 09:26] LABS: Basophils # (auto) 0.07 K/uL (0.00-0.20); Basophils % (auto) 0.7 %; Eosinophils # (auto) 0.31 K/uL (0.00-0.50); Eosinophils % (auto) 3.1 %; Hematocrit (blood only) 36.5 % (37.0-47.0); Hemoglobin 12.3 g/dl (12.0-16.0); Immature Granulocytes # (auto) 0.17 K/uL (0.01-0.20); Immature Granulocytes % (auto) 1.7 %; Lymphocytes # (auto) 2.08 K/uL (1.20-3.40); Lymphocytes % (auto) 20.5 %; Mean Corpuscular Hgb Conc 33.7 g/dL (32.0-36.0); Mean Platelet Volume 10.9 fL (9.4-12.4); Monocytes % (auto) 6.9 %; Neutrophils # (auto) 6.81 K/uL (1.40-6.50); Neutrophils % (auto) 67.1 %; Platelet Count 280 K/uL (130-400); RDW Coefficient of Variation 13.6 % (11.5-14.5); RDW Standard Deviation 44.4 fL (36.4-46.3); White Blood Count 10.14 K/ul (4.8-10.8)
[2024-02-24 09:48] LABS: BUN Creatinine Ratio 21.4 (10-20); C Reactive Protein 11.02 mg/dl (0-0.5); Calcium 9.6 mg/dl (8.6-10.3); Est GFR (African American) 39.9 ml/min; Est GFR (Non-African American) 34.4 ml/min; Magnesium 1.7 mg/dl (1.7-2.4); Potassium 4.2 mmol/L (3.5-5.1)
--- NOTE | 2024-02-24 11:57 | Discharge Summary ---
Discharge Summary Date of Service February 24, 2024 Principal Dx & Hospital Course #1 = Principal Diagnosis (1) Pneumonia: Patient with recent URI symptoms now with sweats, weakness and fatigue. She has mild leukocytosis and elevation of procalcitonin and CRP. CXR as above with bibasilar opacities, possible PNA/pneumonitis. Viral panel is NEGATIVE. Patient with no history of smoking, second hand smoke exposure or pulmonary disease Improving with less cough, improved strength. Hypoxia completely resolved. Sputum culture collected and pending at time of discharge Blood cxs no growth to date on discharge CRP trended down to 11 from 22, leukocytosis resolved Received Ceftriaxone and Azithromycin x 3 days and will dc to home on cefdinir 300mg po bid x 4 more days and azithro 250mg po daily x 2 more days Continue Flutter valve, Incentive spirometer Continue Mucinex BID and tessalon perles tid prn cough Follow blood cxs and Sputum cx after discharge Should have repeat CXR in 4 weeks to ensure resolution (2) Atrial fibrillation with rapid ventricular response: Patient reports she has never been told that she has atrial fibrillation, but her knows that she is on metoprolol and Eliquis. She believes she is on Eliquis due to a blocked artery in her heart. She does follow with Cardiology and those records have been requested from [facility]-obtained records on day of discharge. She has permanent Afib and has been on Elqiuis She also has CAD with 20% LAD lesion and 100% RCA occlusion with collaterals on cath from 2018, medically managed HR improved after increasing oral metoprolol to 125 mg at bedtime-rates now in the 80s to 90s ECHO here preserved EF, no evidence of heart failure Continue metoprolol succ 125mg po hs Continue Eliquis F/u with outpt Cardiology (3) Hypertension: Hypertension-BPs have been soft and her amlodipine and doxazosin were stopped Continue Metoprolol at increased dose, continue Losartan follow BPs as outpt and if increase, discuss with PCP about resuming amlodipine It does appear she has been prescribed Bumex as well as torsemide also as an outpt but it is not on her med rec here-resume at home if on this regularly-f/u with PCP Should be on either torsemide or Bumex, but not both (4) Weakness: Likely secondary to underlying infection - Pneumonia. Improved w/ treatment for pneumonia and gave gentle IVFs PT/OT evaluation appreciated-recommend return home with home health (5) Diabetes mellitus, type 2: Patient with DM - last HgbA1C from 11/2021 = 8.1 Continue Lantus, meal time insulin, resume jardiance on discharge f/u with PCP Plan CHRONIC MEDICAL PROBLEMS: CAD - patient reports history of CAD. No prior MIs or stents. She follows with Cardiology in [place] (?[facility] She reports a blocked artery in her heart but other blood vessels that are open. She denies exertional symptoms. Reports that she is on the Eliquis for this reason. -Continue Simvastatin 40mg po qHS -Continue Ranolazine 500mg po BID -Continue Metoprolol -Continue Losartan 100mg po qHS Hypothyroidism - chronic, stable -Continue Synthroid 100mcg po daily Gout - -Continue Allopurinol CKD stage IV-creatinine stable at baseline at 1.4-1.6 Renally dose medications and avoid nephrotoxins Follow BMP as outpt DVT proph-Eliquis Dispo-dc to home Notes For Next Care Provider Needs repeat CXR in 4 weeks Follow BPs as outpt as amlodipine, doxazosin stopped this admission Need to clarify if she is taking torsemide or Bumex or both as both are listed on her records from Cardiology and meds being prescribed from different providers. However, notes from [facility] say she is to be on both? Does not make clinical sense. Recommend sticking with torsemide Medication Changes From Visit Increased Toprol XL to 125mg po hs Stopped doxazosin and amlodipine Added cefdinir 300mg po bid x 4 days Added azithromycin 250mg po daily x 2 more days Added Mucinex, Tessalon perles prn, and Nasal saline Admission HPI Per Admitting Provider Edie Villarreal is an 83yo female with histoyr of DM, HTN, HLP, CAD, CKD, Gout and GERD presenting with generalized weakness and fatigue. Patient reports having a head cold which started on 02/16/24 - congestion, cough productive for thick, green sputum. She has had progressive fatigue, weakness an dizziness over the last several days with near syncopal events. She has also been having sweat, decreased appetite and poor oral intake. She overall feels that the cough is improving. She denies fever, chest pain, palpitations, abdominal pain, nausea, vomiting, diarrhea. She has chronic BENITEZ but denies worsening. No pleuritic pain. No edema or orthopnea. In the ER she is afebrile, atrial fibrillation with RVR initially with rate of 139 ER Course: Ceftriaxone Metoprolol 5mg IV x 2 doses NSS x 250mL Mg x 1gm Discharge Exam Constitutional WD/WN, vitals as above Respiratory normal respiratory effort and + cough Auscultation: no rhonchi and no wheezes Cardiovascular Rate/Rhythm: regular rate and + irregularly irregular Heart Sounds: no murmur Extremities: no edema Psychiatric Orientation: alert, oriented to person, oriented to place and cooperative Updated Medication List Medication Instructions Recorded Confirmed Type allopurinol 100 mg tablet 100 mg PO QPM 01/27/21 02/21/24 History alprazolam 0.25 mg tablet 0.25 - 0.5 mg PO BID PRN Anxiety 01/27/21 02/21/24 History cyanocobalamin (vitamin B-12) 5,000 mcg PO QAM 01/27/21 02/21/24 History 5,000 mcg capsule doxazosin 1 mg tablet 1 mg PO HS 01/27/21 02/21/24 History gabapentin 300 mg capsule 300 mg PO BID 01/27/21 02/21/24 History insulin aspart U-100 100 unit/mL 8 unit subcut TIDM 01/27/21 02/21/24 History subcutaneous solution (Novolog U-100 Insulin aspart) levothyroxine 100 mcg capsule 100 mcg PO QAM 01/27/21 02/21/24 History losartan 100 mg tablet 100 mg PO HS 01/27/21 02/21/24 History magnesium 250 mg tablet 500 mg PO QAM 01/27/21 02/21/24 History metoprolol succinate 100 mg 100 mg PO PM 01/27/21 02/21/24 History tablet,extended release 24 hr simvastatin 40 mg tablet 40 mg PO HS 01/27/21 02/21/24 History cholecalciferol (vitamin D3) 125 125 mcg PO QAM 11/14/21 02/21/24 History mcg (5,000 unit) tablet (Vitamin D3) insulin glargine U-300 conc 300 52 unit subcut PM 11/14/21 02/21/24 History unit/mL (3 mL) subcutaneous pen ([employer] Max U-300 [employer]) famotidine 20 mg tablet 20 mg PO BID 11/20/21 02/21/24 History polyethylene glycol 3350 17 gram 17 g PO DAILY PRN constipation #5 11/25/21 02/21/24 Rx oral powder packet (Miralax) ea amlodipine 2.5 mg tablet 2.5 mg PO DAILY 02/21/24 02/21/24 History apixaban 2.5 mg tablet (Eliquis) 2.5 mg PO BID 02/21/24 02/21/24 History dapagliflozin propanediol 10 mg 10 mg PO DAILY 02/21/24 02/21/24 History tablet (Farxiga) potassium chloride 10 mEq 20 meq PO DAILY 02/21/24 02/21/24 History capsule,extended release ranolazine 500 mg tablet,extended 500 mg PO BID 02/21/24 02/21/24 History release,12 hr azithromycin 250 mg tablet 250 mg PO DAILY #2 tabs 02/24/24 Rx benzonatate 100 mg capsule 100 mg PO TID PRN cough #20 caps 02/24/24 Rx bumetanide 1 mg tablet 1 mg PO DAILY 02/24/24 02/24/24 History cefdinir 300 mg capsule 300 mg PO BID #8 caps 02/24/24 Rx metoprolol succinate 25 mg 25 mg PO PM #30 tabs 02/24/24 Rx tablet,extended release 24 hr torsemide 10 mg tablet 10 mg PO QAM 02/24/24 02/24/24 History Hospital Stay Data Consultations 02/21/24 20:04 ED Decision to Admit Stat 02/22/24 08:37 HIM [Consult Health Information Management] Routine Diagnostic Imagining Performed 02/21/24 18:51 CT head/brain wo con Stat ECHO Pending Results Patient Have Any Pending Studies at Discharge: Yes (Sputum and blood cultures) Discharge Instructions Given to Patient (Per Discharging Provider) Please finish out the two different antibiotics called cefdinir and azithromycin for your pneumonia. You should have a repeat chest xray in 4 weeks to ensure your pneumonia has completely cleared. You can take Mucinex twice a day to thin out your mucus and take benzonatate capsules as needed for cough. Your heart is in a rapid, irregular rhythm called atrial fibrillation. Because your heart rates were high, your metoprolol dose was increased to 125mg at bedtime. A new prescription for the 25mg tablets was called in for you to take in addition to your 100mg tablet. Your blood pressures were on the lower side and your amlodipine and doxazosin were both stopped. Please check your blood pressure 1-2 times per day and if your blood pressures increase to over 140/90, then talk to your doctor about resuming your amlodipine. Total Time Total Time Spent Total Time Spent (In Minutes): 35 min Total Time Includes: Examination of the Patient, Discharge Planning and Medication Reconciliation Coding Level of Care Code 50908 INP/OBS DISCH >30 MIN Diagnoses Pneumonia J18.9 Atrial fibrillation with rapid ventricular response I48.91 Hypertension I10 Weakness R53.1 Diabetes mellitus, type 2 E11.9
== END 2024-02-24 12:39 | disposition home health service (06) | DRG 194 ==
LOC: ED 16:50 → SUATTDRO 20:44 → EDINP 20:44 → 2N 23:43